=== PATIENT | male | born 1975 | race African-American/Black ===

== ENCOUNTER 2021-11-25 10:17 | Emergency (ER) | payer OTHER, SELFPAY ==
--- NOTE | 2021-11-25 10:24 | ED.URI ---
HPI - URI/Sore Throat General Chief Complaint: Asthma Stated Complaint: Asthma Flare up Time Seen by Provider: 11/25/21 10:27 History of Present Illness HPI Narrative: Patient is a 46-year-old male who presents the urgent care with complaints of an asthma flare and wheezing. 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 Patient denies any chest pain or tightness. Denies any other upper respiratory complaints. States that he has been using his albuterol inhaler with mild relief. No other acute complaints. No acute distress noted. Patient aware of the plan of care. Some parts of this dictation were generated by voice recognition software and may contain typographical and/or grammatical inaccuracies. Related Data Home Medications Medication Instructions Recorded Confirmed albuterol sulfate 90 mcg/actuation 90 mcg inhalation Q4-6H PRN 11/25/21 11/25/21 aerosol inhaler Wheezing Allergies Allergy/AdvReac Type Severity Reaction Status Date / Time No Known Allergies Allergy Verified 11/25/21 10:35 Review of Systems Review of Systems: CONSTITUTIONAL: Denies fever, chills, or sweats. EYES: Denies visual changes, redness, or discharge. ENT: Denies rhinorrhea, congestion, sore throat, or otalgia. CARDIOVASCULAR: Denies chest pain, palpitations, or edema. RESPIRATORY: Reports of wheezing GASTROINTESTINAL: Denies abdominal pain, nausea, vomiting, or diarrhea. GENITOURINARY: Denies dysuria or hematuria. SKIN: Denies rash or itching. MUSCULOSKELETAL: Denies back pain, joint pain, or myalgia. NEUROLOGIC: Denies headache, numbness, or weakness. All other systems reviewed are negative, except as documented in HPI. PMFSH Comments At the time of my signature, I reviewed and agree with the nursing past medical, surgical, social, and family history. There is no relevant family history pertinent to the patient complaint. Exam Narrative: GENERAL: This is a well-nourished, well-developed patient, in no apparent distress. HEAD: normocephalic, atraumatic. EYES: PERRL. Sclera clear/white. Vision is grossly intact. EARS: External ears normal, auditory canals clear and without drainage, TMs normal without perforation. Hearing grossly intact. NOSE: External nose normal with no obvious nasal discharge, nares without redness, no rhinorrhea. THROAT: Mucous membranes moist NECK: Neck supple CARDIOVASCULAR: Regular rate and rhythm without murmurs, gallops, or rubs. RESPIRATORY: Inspiratory and expiratory wheezes, tight throughout SKIN: warm, intact with no suspicious lesions or rash, good texture and turgor. NEURO: awake, alert, and oriented to person, place and time. There were no obvious focal neurologic abnormalities. EXTREMITIES: No clubbing, cyanosis, or edema. Course Course Level of Care: Express Care Visit Vital Signs Vital signs: Vital Signs Temperature 98.0 F 11/25/21 10:26 Pulse Rate 94 11/25/21 10:26 Respiratory Rate 20 11/25/21 10:26 Blood Pressure 141/71 H 11/25/21 10:26 Pulse Oximetry 98 11/25/21 10:26 Oxygen Delivery Room Air 11/25/21 10:26 Temperature 98.0 F 11/25/21 10:26 Pulse Rate 94 11/25/21 10:26 Respiratory Rate 20 11/25/21 10:26 Blood Pressure 141/71 H 11/25/21 10:26 Pulse Oximetry 98 11/25/21 10:26 Oxygen Delivery Room Air 11/25/21 10:26 Reviewed-patient is informed that they may have pre-hypertension or hypertension based on a blood pressure reading in the department. I recommend the patient call the primary care provider listed on their discharge instructions or a physician of their choice this week to arrange follow-up for further evaluation of possible pre-hypertension or hypertension. MDM - URI/Sore Throat MDM Narrative Medical decision making narrative: Advised the patient to complete the steroid regimen as prescribed. Start the medication tomorrow
[2021-11-25 10:26] VITALS: BP 141/71; PULSE 94; RESP 20; TEMP 36.7; O2SAT 98
[2021-11-25] MEDS: IPRATROPIUM BR 0.02% INH SOLN 0.5 MG/2.5 ML VIAL INHALATION (10:56)
[2021-11-25] MEDS: ALBUTEROL SULFATE NEB 2.5 MG/3 ML INH INHALATION (10:56)
[2021-11-25] MEDS: predniSONE 20 MG TABLET 60 MG PO (10:56)
== END 2021-11-25 11:22 | disposition home or self-care (01) ==
PROVIDERS: Emergency Provider Nurse Practitioner Family; PCP Nurse Practitioner Family
DX: J45.21 Mild intermittent asthma with (acute) exacerbation (principal)
CPT/HCPCS: 94640; 99203; G0463; J7512

== ENCOUNTER 2022-01-06 17:53 | Emergency (ER) | payer OTHER, SELFPAY ==
[2022-01-06 18:00] VITALS: BP 142/92; PULSE 92; RESP 20; TEMP 36.9; O2SAT 100
[2022-01-06 18:06] VITALS: BP 142/92; PULSE 92; RESP 20; TEMP 36.9; O2SAT 100
--- NOTE | 2022-01-06 18:09 | ED.NAVMDI ---
HPI - Nausea/Vomiting/Diarrhea General Chief complaint: Nausea/Vomiting/Diarrhea Stated complaint: Abdominal Pain/Diarrhea Time Seen by Provider: 01/06/22 18:09 Source: patient and RN notes reviewed Mode of arrival: ambulatory Limitations: no limitations History of Present Illness HPI Narrative: 46 y/o male presented for complaint of diarrhea since yesterday. He states he ate hot wings and developed abdominal bloating, nausea, and diarrhea. He has taken candelaria tommie for symptoms. Denies vomiting, hematochezia, melena, fevers or chills. Denies sick contacts. He endorses about 3 soft stools today. Has had a decreased appetite today. Related Data Home Medications Medication Instructions Recorded Confirmed albuterol sulfate 90 mcg/actuation 90 mcg inhalation Q4-6H PRN 11/25/21 01/06/22 aerosol inhaler Wheezing montelukast 10 mg tablet 10 mg PO DAILY 01/06/22 01/06/22 Allergies Allergy/AdvReac Type Severity Reaction Status Date / Time No Known Allergies Allergy Verified 01/06/22 18:05 Review of Systems Review of Systems: CONSTITUTIONAL: Denies body aches, fever, chills ENT: Denies rhinorrhea, congestion CARDIOVASCULAR: Denies chest pain, palpitations, or edema. RESPIRATORY: Denies cough or dyspnea. GASTROINTESTINAL: Endorses diarrhea. Denies abdominal pain, nausea, vomiting, hematochezia, melena GENITOURINARY: Denies dysuria, hematuria, or CVA tenderness. SKIN: Denies rash, itching, or wounds. MUSCULOSKELETAL: Denies back pain, joint pain, or myalgia. NEUROLOGIC: Denies headache, numbness, tingling, or weakness. All systems reviewed & are unremarkable except as noted in HPI and below PMFSH Comments At time of signature, I have reviewed and agree with nursing past medical, surgical, social and family history unless otherwise noted. Please see nursing chart for further information. There is no relevant family history pertinent to the presenting complaint Exam Narrative: GENERAL: Well-appearing EYES: EOMI. Conjunctivae normal. ENT: Mucous membranes pink and moist. CHEST: Clear to auscultation. HEART: Regular rate and rhythm. No murmur appreciated. ABDOMEN: abd soft, nondistended, nontender, normal active bowel sounds. EXTREMITIES: Normal range of motion. No edema. SKIN: Warm, dry, no rash. Capillary refill normal. Normal skin turgor. NEURO: No focal deficits. Alert and oriented x3. PSYCH: Normal affect. Course Course Emergency Course: Patient is aware of diagnosis, understands and agrees to treatment plan. Anticipatory guidance given. Patient agrees to follow-up as directed and is aware of reasons to seek care at the emergency department. Portions of this record may have been created with voice recognition software Level of Care: Express Care Visit Vital Signs Vital signs: Vital Signs Temperature 98.4 F 01/06/22 18:00 Pulse Rate 92 01/06/22 18:00 Respiratory Rate 20 01/06/22 18:00 Blood Pressure 142/92 H 01/06/22 18:00 Pulse Oximetry 100 01/06/22 18:00 Oxygen Delivery Room Air 01/06/22 18:00 Temperature 98.4 F 01/06/22 18:06 Pulse Rate 92 01/06/22 18:06 Respiratory Rate 20 01/06/22 18:06 Blood Pressure 142/92 H 01/06/22 18:06 Pulse Oximetry 100 01/06/22 18:06 Oxygen Delivery Room Air 01/06/22 18:06 MDM - Nausea/Vomiting/Diarrhea MDM Narrative Medical decision making narrative: Presented for complaint of diarrhea, symptoms are improving. Advised supportive measures. Reviewed signs and symptoms to go to the ER. He is stable and appropriate for outpatient treatment follow-up. Differential Diagnosis Differential diagnosis: Likely traveler's diarrhea, food poisoning and gastroenteritis Discharge Plan Discharge Clinical Impression: Diarrhea Qualifiers: Diarrhea type: unspecified type Qualified Code(s): R19.7 - Diarrhea, unspecified Patient Disposition: Home, Self-Care Condition: Stable Instructions: Acute Diarrhea (ED) Neto
== END 2022-01-06 18:21 | disposition home or self-care (01) ==
PROVIDERS: Emergency Provider Nurse Practitioner Family; PCP Nurse Practitioner Family
DX: R19.7 Diarrhea, unspecified (principal); J45.909 Unspecified asthma, uncomplicated
CPT/HCPCS: 99211; G0463

== ENCOUNTER 2022-11-11 08:41 | Emergency (ER) | payer OTHER, SELFPAY ==
[2022-11-11 08:54] VITALS: BP 125/77; PULSE 72; RESP 20; TEMP 36.4; O2SAT 100
--- NOTE | 2022-11-11 09:14 | ED.URI ---
HPI - URI/Sore Throat General Chief Complaint: Upper Respiratory Infection Stated Complaint: Asthma Source: patient and RN notes reviewed History of Present Illness HPI Narrative: 47 yo M presents to urgent care with complaints of wheezing x 9 days. Pt states he was dx with asthma as a kid and hasn't had a lot of issues as an adult. Pt is unsure if he is allergic to something at his place of work or at home. Denies any new exposures that he knows of. Denies any fevers, chills, congestion, abdominal pain, N/V/D, chest pain, or SOB. Pt does take a Singulair pill daily. Related Data Home Medications Medication Instructions Recorded Confirmed albuterol sulfate 90 mcg/actuation 90 mcg inhalation Q4-6H PRN 11/25/21 11/11/22 aerosol inhaler Wheezing montelukast 10 mg tablet 10 mg PO DAILY 01/06/22 11/11/22 Allergies Allergy/AdvReac Type Severity Reaction Status Date / Time No Known Allergies Allergy Verified 11/11/22 09:14 Review of Systems Review of Systems: CONSTITUTIONAL: Denies fever, chills, or sweats. EYES: Denies visual changes, redness, or discharge. ENT: Denies otalgia and sore throat CARDIOVASCULAR: Denies chest pain, palpitations, or edema. RESPIRATORY: Wheezing GASTROINTESTINAL: Denies abdominal pain, nausea, vomiting, or diarrhea. GENITOURINARY: Denies dysuria or hematuria. SKIN: Denies rash or itching. MUSCULOSKELETAL: Denies back pain, joint pain, or myalgia. NEUROLOGIC: Denies headache, numbness, or weakness. Pertinent positives per HPI. PMFSH Comments At the time of my signature, I reviewed and agree with the nursing past medical, surgical, social, and family history. There is no relevant family history pertinent to the patient complaint. Exam Narrative: GENERAL: This is a well-nourished, well-developed patient, in no apparent distress. HEAD: normocephalic, atraumatic. EYES: Sclera clear/white. Vision is grossly intact. EARS: External ears normal, auditory canals clear and without drainage. Hearing grossly intact. NOSE: External nose normal with no obvious nasal discharge, nares without redness, no rhinorrhea. THROAT: Mucous membranes moist, posterior pharynx clear. NECK: Neck supple, non-tender without lymphadenopathy, masses or thyromegaly. CARDIOVASCULAR: Regular rate and rhythm without murmurs, gallops, or rubs. RESPIRATORY: Mild wheezing throughout GASTROINTESTINAL: Abdomen soft, non-tender, nondistended. Bowel sounds are active. No hepato-splenomegaly, or palpable masses. No guarding. SKIN: warm, intact with no suspicious lesions or rash, good texture and turgor. NEURO: awake, alert, and oriented to person, place and time. There were no obvious focal neurologic abnormalities. Course Course Level of Care: Express Care Visit Vital Signs Vital signs: Vital Signs Temperature 97.6 F 11/11/22 08:54 Pulse Rate 72 11/11/22 08:54 Respiratory Rate 20 11/11/22 08:54 Blood Pressure 125/77 11/11/22 08:54 Pulse Oximetry 100 11/11/22 08:54 Oxygen Delivery Room Air 11/11/22 08:54 Temperature 97.6 F 11/11/22 08:54 Pulse Rate 72 11/11/22 08:54 Respiratory Rate 20 11/11/22 08:54 Blood Pressure 125/77 11/11/22 08:54 Pulse Oximetry 100 11/11/22 08:54 Oxygen Delivery Room Air 11/11/22 08:54 reviewed MDM - URI/Sore Throat MDM Narrative Medical decision making narrative: Do not smoke. Avoid smoke of any kind. May use a humidifier in the bedroom. Get plenty of fluids and rest. Take steroids as directed. Use your inhaler every 4-6 hours if needed. Follow up with your MD in 2-5 days. Go to the ER with any new or worsening symptoms. Differential Diagnosis Differential diagnosis: Likely upper respiratory infection, bronchitis and other (asthma exacerabation) Critical Care Time Critical Care Time Critical Care Time: No Discharge Plan Discharge Clinical Impression: Asthma Qualifiers: Asthma severity: unspecified severity Asthma
== END 2022-11-11 09:20 | disposition home or self-care (01) ==
PROVIDERS: Emergency Provider Nurse Practitioner Family; PCP Nurse Practitioner Family
DX: J45.901 Unspecified asthma with (acute) exacerbation (principal)
CPT/HCPCS: 99213; G0463

== ENCOUNTER 2023-04-18 12:21 | Emergency (ER) | payer OTHER, SELFPAY ==
--- NOTE | ~2023-04-18 | XR_ITS ---
EXAMINATION: XR ankle LT min 3V DATE: 04/18/2023 12:52 INDICATION: Left ankle pain TECHNIQUE: Anteroposterior, lateral, mortise, and additional oblique view of the ankle were obtained. COMPARISON: None. FINDINGS: No fracture, dislocation, or subluxation. The bones, soft tissues, and joint spaces are nor mal. IMPRESSION: 1. No acute osseous abnormality. Reviewed, dictated and finalized at location A. ES ASSISTANT
--- NOTE | ~2023-04-18 | XR_ITS ---
EXAMINATION: XR foot LT min 3V DATE: 04/18/2023 12:52 INDICATION: Left foot pain TECHNIQUE: Dorsoplantar, lateral, and 2 oblique views of the left foot were obtained. COMPARISON: None. FINDINGS: Bone alignment is normal. There is no fracture. The joint spaces are normal. The soft tissu es are unremarkable. IMPRESSION: 1. No acute osseous abnormality. Reviewed, dictated and finalized at location A. UNTING PRACTICE MANAGER
[2023-04-18 12:26] VITALS: BP 123/79; PULSE 83; RESP 20; TEMP 36.6; O2SAT 98
[2023-04-18 12:35] VITALS: BP 123/79; PULSE 83; RESP 20; TEMP 36.6; O2SAT 98
--- NOTE | 2023-04-18 12:49 | ED.LOWEXIN ---
HPI - Extremity Injury (Lower) General Chief Complaint: Extremity Injury, Lower Stated Complaint: feels like he twisted left foot/ankle Time Seen by Provider: 04/18/23 12:50 Source: patient, RN notes reviewed and old records reviewed Mode of arrival: ambulatory Limitations: no limitations History of Present Illness HPI Narrative: 47 year old male presents to [facility] with complaints of left foot pain laterally radiating up to his ankle for the past 4-5 days. 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 Patient reports that he has been taking Ibuprofen for his discomfort and has applied ice and has used mike wrap to his foot without improvement. Patient does have some swelling to his foot, no obvious deformity noted. MD complaint: foot injury (radiates to left ankle) Onset (ago): day(s) (4-5 days) Injury: Left: ankle and foot Severity: moderate Severity scale (1-10): 5 Exacerbating factors: weight bearing and movement Associated symptoms: swelling Treatments prior to arrival: cold therapy and other (Ibuprofen and mike wrap) Related Data Allergies Allergy/AdvReac Type Severity Reaction Status Date / Time No Known Allergies Allergy Verified 11/11/22 09:14 Review of Systems Review of Systems: CONSTITUTIONAL: Denies fever, chills, or sweats. CARDIOVASCULAR: Denies chest pain, palpitations, or edema. RESPIRATORY: Denies cough or dyspnea. SKIN: Denies rash or itching. Denies laceration or abrasions MUSCULOSKELETAL: Reports pain to his lateral left foot radiating to his left lateral ankle NEUROLOGIC: Denies numbness, or weakness. All systems reviewed & are unremarkable except as noted in HPI and below PMFSH Past Medical History Medical History (Updated 04/19/23 @ 08:14 by Chantale New NP) Asthma Social History Social History (Updated 04/19/23 @ 08:09 by Chantale New NP) Smoking status: Never smoker Alcohol intake: current Alcohol use details: social Substance use type: does not use Living arrangements: with family Gender identity (if verbalized by the patient): Male Comments At time of signature, agree with nursing past medical, surgical, social and family history. There is no relevant family history pertinent to the presenting complaint Exam Narrative: GENERAL: Well-appearing, well-nourished, and in no acute distress. HEAD: Normocephalic, atraumatic. EYES: PERRLA, conjunctivae clear NECK: Supple. CHEST: Speaks in full sentences. No respiratory distress.SAO2 98% on room air HEART: Regular rate and rhythm. Normal and equal peripheral pulses. EXTREMITIES: Left foot and ankle has normal strength and sensation, normal range of motion with some discomfort. some left foot edema no ecchymosis. 5/5 strength with normal flexion and extension. Normal sensation with sensitivity to light touch and pain. lateral foot and lateral ankle point tenderness.? ?No open wounds, no skin tenting, no devitalized tissue or atrophy, no trophic changes, no obvious deformity, alignment normal, nearby joints and structures intact. Distal pulses palpable and equal bilaterally, skin warm, dry, pink. Capillary refill less than 3 seconds. Course Course Emergency Course: Patient is aware of diagnosis, understands and agrees to treatment plan. Anticipatory guidance given. Patient agrees to follow-up as directed and is aware of reasons to seek care at the emergency department. Portions of this record may have been created with voice recognition software Level of Care: Express Care Visit Vital Signs Vital signs: Vital Signs Temperature 36.6 C 04/18/23 12:26 Pulse Rate 83 04/18/23 12:26 Respiratory Rate 20 04/18/23 12:26 Blood Pressure 123/79 04/18/23 12:26 Pulse Oximetry 98 04/18/23 12:26 Oxygen Delivery Room Air 04/18/23 12:26 Temperature 36.6 C 04/18/23 12:35 Pulse Rate 83 04/18/23 12:35
== END 2023-04-18 13:20 | disposition home or self-care (01) ==
PROVIDERS: Emergency Provider Registered Nurse
DX: S93.402A Sprain of unspecified ligament of left ankle, initial encounter (principal); S96.912A Strain of unspecified muscle and tendon at ankle and foot level, left foot, initial encounter; S93.602A Unspecified sprain of left foot, initial encounter; X58.XXXA Exposure to other specified factors, initial encounter; Y99.0 Civilian activity done for income or pay; J45.909 Unspecified asthma, uncomplicated
CPT/HCPCS: 73610; 73630; 99213; G0463

== ENCOUNTER 2023-07-11 13:05 | Emergency (ER) | payer OTHER, SELFPAY ==
[2023-07-11 13:10] VITALS: BP 133/87; PULSE 86; RESP 20; TEMP 36.4; O2SAT 98
--- NOTE | 2023-07-11 14:40 | ED.GENADULT ---
HPI - General Adult General Chief complaint: Upper Respiratory Infection Stated complaint: asthma issue Source: patient Mode of arrival: ambulatory Limitations: no limitations History of Present Illness HPI narrative: Patient presents requesting a note to document that he is asthmatic. He indicates he administers albuterol per inhaler as needed for shortness of breath or wheezing. Occasionally he needs to use nebulizer treatments. He indicates he received notice that his power was going to be shut off however he was told that if he provided documentation that he was asthmatic, the company would work with him to keep his power on. He states that his asthma is currently fairly well controlled. He denies any other complaints. He does not smoke. Related Data Home Medications Medication Instructions Recorded Confirmed albuterol sulfate 2.5 mg/3 mL See Rx Instructions .Route 07/11/23 07/11/23 (0.083 %) solution for nebulization .COMPLEX PRN sob albuterol sulfate 90 mcg/actuation See Rx Instructions .Route 07/11/23 07/11/23 aerosol inhaler .COMPLEX PRN sob fluticasone 100 mcg-salmeterol 50 See Rx Instructions .Route .COMPLEX 07/11/23 07/11/23 mcg/dose blistr powdr for inhalation montelukast 10 mg tablet 10 mg PO DAILY 07/11/23 07/11/23 Allergies Allergy/AdvReac Type Severity Reaction Status Date / Time No Known Allergies Allergy Verified 07/11/23 13:39 Review of Systems Review of Systems: CONSTITUTIONAL: Denies fever, chills, or sweats. EYES: Denies visual changes, redness, or discharge. ENT: Denies rhinorrhea, congestion, sore throat, or otalgia. CARDIOVASCULAR: Denies chest pain, palpitations, or edema. RESPIRATORY: Denies cough or dyspnea. GASTROINTESTINAL: Denies abdominal pain, nausea, vomiting, or diarrhea. GENITOURINARY: Denies dysuria or hematuria. SKIN: Denies rash or itching. MUSCULOSKELETAL: Denies back pain, joint pain, or myalgia. NEUROLOGIC: Denies headache, numbness, dizziness, or weakness. PSYCHIATRIC: Denies anxiety or depression. [facility] Past Medical History Medical History Asthma Surgical History Surgical History No pertinent past surgical history Family History Family History Mother Family history non-contributory Social History Social History (Updated 07/11/23 @ 14:44 by LILY Munoz, ) Smoking status: Never smoker Alcohol intake: current Alcohol use details: social Substance use type: does not use Living arrangements: with family Gender identity (if verbalized by the patient): Male Spiritual care concerns: No Course Course Emergency Course: This is a 47-year-old male who presented requesting a note documenting that he is asthmatic. I think this is reasonable request is there is already documentation in his chart indicating that. Letter was provided. He should follow up with his PCP. Continue to use albuterol inhaler and neb treatments as previously directed. Pt in agreement with plan of care. Level of Care: Express Care Visit Vital Signs Vital signs: Vital Signs Temperature 36.4 C 07/11/23 13:10 Pulse Rate 86 07/11/23 13:10 Respiratory Rate 20 07/11/23 13:10 Blood Pressure 133/87 07/11/23 13:10 Pulse Oximetry 98 07/11/23 13:10 Oxygen Delivery Room Air 07/11/23 13:10 Temperature 36.4 C 07/11/23 13:10 Pulse Rate 86 07/11/23 13:10 Respiratory Rate 20 07/11/23 13:10 Blood Pressure 133/87 07/11/23 13:10 Pulse Oximetry 98 07/11/23 13:10 Oxygen Delivery Room Air 07/11/23 13:10 Medical Decision Making Vital Signs Vital Signs: Vital Signs Temperature 36.4 C 07/11/23 13:10 Pulse Rate 86 07/11/23 13:10 Respiratory Rate 20 07/11/23 13:10 Blood Pressure 133/87 07/11/23 13:10 Pulse Oximetry 98
== END 2023-07-11 14:40 | disposition home or self-care (01) ==
PROVIDERS: Emergency Provider Nurse Practitioner; PCP Nurse Practitioner Family
DX: J45.909 Unspecified asthma, uncomplicated (principal)
CPT/HCPCS: 99211; G0463

== ENCOUNTER 2023-08-30 16:00 | Emergency (ER) | payer OTHER, SELFPAY ==
[2023-08-30 16:11] VITALS: BP 139/94; PULSE 80; RESP 20; TEMP 36.4; O2SAT 100
--- NOTE | 2023-08-30 16:31 | ED.URI ---
HPI - URI/Sore Throat General Chief Complaint: Upper Respiratory Infection Stated Complaint: Skin Problem/Shortness of Breath Source: patient, RN notes reviewed and old records reviewed Mode of arrival: ambulatory Limitations: no limitations History of Present Illness HPI Narrative: 48 year old male who presents to [facility] care with complaints of pustular lesion to his left forehead for the past 2 days which he has pinched around it with no drainage noted for the past 2 days. Patient reports that he had had pressure to his sinus and has had a frontal headache for 2 day also. Patient reports that anytime he gets sinus drainage, sinus problem it acts up his asthma and he has been experiencing more wheezing but denies any acute dyspnea. or fevers. MD elicited complaint: cough, rhinorrhea, nasal congestion and other (pustular lesion on forehead) Pertinent past history: sinusitis and asthma Related Data Home Medications Medication Instructions Recorded Confirmed albuterol sulfate 2.5 mg/3 mL See Rx Instructions .Route 07/11/23 08/30/23 (0.083 %) solution for nebulization .COMPLEX PRN sob albuterol sulfate 90 mcg/actuation See Rx Instructions .Route 07/11/23 08/30/23 aerosol inhaler .COMPLEX PRN sob montelukast 10 mg tablet 10 mg PO DAILY 07/11/23 08/30/23 Allergies Allergy/AdvReac Type Severity Reaction Status Date / Time No Known Allergies Allergy Verified 08/30/23 16:23 Review of Systems Review of Systems: CONSTITUTIONAL: Denies malaise, chills, sweats, or fever. EYES: Denies visual changes, redness, or discharge. ENT: Reports rhinorrhea, congestion,positive for sinus pain,no otalgia and no sore throat. CARDIOVASCULAR: Denies chest pain, palpitations, or edema. RESPIRATORY: Reports cough.? Positive for cough and some wheezing GASTROINTESTINAL: Denies abdominal pain, nausea, vomiting, diarrhea SKIN: Denies rash or itching.small pustule to forehead MUSCULOSKELETAL: Denies myalgia. NEUROLOGIC: Reports frontal headache. All systems reviewed & are unremarkable except as noted in HPI and below PMFSH Past Medical History Medical History Asthma Back pain Bronchitis Surgical History Surgical History No pertinent past surgical history Family History Family History Mother Family history non-contributory Social History Social History Smoking status: Never smoker Alcohol intake: current Alcohol use details: social Substance use type: does not use Living arrangements: with family Gender identity (if verbalized by the patient): Male Spiritual care concerns: No Comments At time of signature, agree with nursing past medical, surgical, social and family history. There is no relevant family history pertinent to the presenting complaint Exam Narrative: GENERAL: Well-appearing, well-nourished, and in no acute distress. HEAD: Normocephalic EYES: PERRLA, conjunctivae clear ENT: Nares clear, turbinates edematous and erythematous, clear discharge. Mucous membranes moist. TM pearly horn with dull light reflex bilaterally; no tragal tenderness. Oropharynx erythematous without lesions. Tonsils not enlarged and without exudate, no drooling, no hoarseness, no trismus, uvula midline.post nasal drainage present NECK: Supple. No lymphadenopathy CHEST:Scattered wheezing on auscultation, breath sounds equal.positive for wheezing, rhonchi, rales, or stridor. No respiratory distress, speaks in full sentences. HEART: Regular rate and rhythm. No murmur heard. SKIN: Warm, dry, no rash small pustular lesion to left forehead. NEURO: Alert and oriented x3. PSYCH: Normal mood and affect Course Course Emergency Course: Patient is aware of diagnosis, understands and agre
== END 2023-08-30 16:50 | disposition home or self-care (01) ==
PROVIDERS: Emergency Provider Registered Nurse; PCP Nurse Practitioner Family
DX: J34.89 Other specified disorders of nose and nasal sinuses (principal); L08.9 Local infection of the skin and subcutaneous tissue, unspecified; J45.41 Moderate persistent asthma with (acute) exacerbation
CPT/HCPCS: 99213; G0463

== ENCOUNTER 2023-12-27 10:38 | Emergency (ER) | payer OTHER, SELFPAY ==
[2023-12-27 10:42] VITALS: BP 147/79; PULSE 100; RESP 20; TEMP 36.7; O2SAT 98
--- NOTE | 2023-12-27 10:49 | ED.ASTHMA ---
HPI - Asthma General Stated Complaint: Wheezing History of Present Illness HPI Narrative: Patient presents with an asthma flare. Patient denies any shortness of breath and no chest pain no fever no body aches. Patient states whenever there is a drastic weather change he has problems with his asthma. Patient states he does use an Advair inhaler in the past but has not had any for quite sometimes he thinks he may have run out of refills or he misplaced it. Patient has been using his rescue inhaler at home more than usual and has an albuterol nebulizer treatment at home that he uses as prescribed. Related Data Home Medications Medication Instructions Recorded Confirmed albuterol sulfate 2.5 mg/3 mL See Rx Instructions .Route 07/11/23 08/30/23 (0.083 %) solution for nebulization .COMPLEX PRN sob albuterol sulfate 90 mcg/actuation See Rx Instructions .Route 07/11/23 08/30/23 aerosol inhaler .COMPLEX PRN sob fluticasone 250 mcg-salmeterol 50 inhalation 12/27/23 mcg/dose blistr powdr for inhalation (Advair Diskus) Allergies Allergy/AdvReac Type Severity Reaction Status Date / Time No Known Allergies Allergy Verified 08/30/23 16:23 Review of Systems Review of Systems: CONSTITUTIONAL: Denies chills, or sweats. Reports fever and generalized body aches EYES: Denies visual changes, redness, or discharge. ENT: Denies otalgia. Reports nasal congestion runny nose and sore throat CARDIOVASCULAR: Denies chest pain, palpitations, or edema. RESPIRATORY: Denies dyspnea. Reports occasional cough GASTROINTESTINAL: Denies abdominal pain, nausea, vomiting, or diarrhea. GENITOURINARY: Denies dysuria or hematuria. SKIN: Denies rash or itching. MUSCULOSKELETAL: Denies back pain, joint pain, or myalgia. Reports generalized body aches NEUROLOGIC: Denies headache, numbness, or weakness. PSYCHIATRIC: Denies anxiety or depression. [facility] Past Medical History Medical History Asthma Back pain Bronchitis Surgical History Surgical History No pertinent past surgical history Family History Family History Mother Family history non-contributory Social History Social History Smoking status: Never smoker Alcohol intake: current Alcohol use details: social Substance use type: does not use Living arrangements: with family Gender identity (if verbalized by the patient): Male Spiritual care concerns: No Comments At time of signature, agree with nursing past medical, surgical, social and family history. There is no relevant family history pertinent to the presenting complaint Exam Narrative: The patient is a well-developed, well-nourished in no acute distress. SKIN: Skin is warm and dry without erythema, swelling or exudate. There is good turgor. No tenting. HEAD: Atraumatic. Normocephalic. No temporal or scalp tenderness. EYES: Moist and bright. Sclera and conjunctivae normal. No discharge. PERRLA. Extraocular motions intact. Gross visual acuity intact. EARS: Pinna is normal shape and contour. Clear external auditory canals. TM pearly hernandez with good cone of light, no erythema or suppuration. Bilateral cerumen noted no gross hearing deficit. NOSE: pink, moist mucosa with good air movement. Clear rhinorrhea without nasal flaring. Septum midline. Mouth: moist mucous membranes. THROAT; mild erythema noted to posterior oropharynx with moderate postnasal drainage. Without exudate or ulceration.. Uvula midline. Normal movement of soft palate. NECK: Supple and nontender with full range of motion without discomfort. No meningeal signs. LUNGS: Equal and bilateral breath sounds without rales or rhonchi. Scattered expiratory wheezes CHEST: The chest wall is without retractions or use of accessory muscl
[2023-12-27 11:01] VITALS: BP 147/79; PULSE 100; RESP 20; TEMP 36.7; O2SAT 98
== END 2023-12-27 11:00 | disposition home or self-care (01) ==
PROVIDERS: Emergency Provider Nurse Practitioner Family; PCP Nurse Practitioner Family
DX: J45.901 Unspecified asthma with (acute) exacerbation (principal)
CPT/HCPCS: 99213; G0463

== ENCOUNTER 2024-06-18 18:10 | Emergency (ER) | payer OTHER, SELFPAY ==
--- OUTSIDE RECORDS SUMMARY | 2024-06-18 18:13 | XMS_ITS | Referral Summary ---
Author Organization [facility] Address [address] [place] [address] Care Team Providers Care Capacity Planner Name Role Phone Jay Dolores Nanci AHUJA Primary Care Provider Encounters Date Type Department Care Team Description 06/14/2024 Documentation [facility] Home Care Services [address] [place] [address] Louis Syed, TEACHER OF THE HEARING IMPAIRED 03/22/2024 Telephone [facility] Pulmonary Jess [address] [facility] [address] [place] [address] Johnny Dyson CMA from Last 3 Months Allergies Active Allergy Reactions Criticality Noted Date Comments Peanut Butter Flavor Anaphylaxis High 03/22/2018 Medications traMADol (ULTRAM) 50 mg tablet take 1 tablet by oral route every 6 hours as needed 12 0 6 Active Additional Information Patient not taking.Reported on 12/21/2021 omeprazole (PriLOSEC) 20 mg capsule Take 1 capsule (20 mg total) by mouth daily. 30 capsule 9 Active Additional Information Patient not taking.Reported on 10/20/2018 albuterol HFA (PROVENTIL HFA,VENTOLIN HFA,PROAIR HFA) 90 mcg/actuation inhaler Inhale 2 puffs every 4 (four) hours as needed for wheezing 1 each 3 Active amoxicillin-cla vulanate (AUGMENTIN) 875-125 mg per tablet Take 1 tablet by mouth every 12 (twelve) hours 14 tablet 3 Active albuterol HFA (PROVENTIL HFA,VENTOLIN HFA,PROAIR HFA) 90 mcg/actuation inhaler Inhale 2 puffs every 4 (four) hours as needed for wheezing 1 each 4 Active albuterol 2.5 mg /3 mL (0.083 %) nebulizer solution Take 3 mL (2.5 mg total) by nebulization every 6 (six) hours as needed for wheezing 75 mL 4 Active montelukast (SINGULAIR) 10 mg tabletIndicatio ns:Maintenance Therapy for Asthma Take 1 tablet (10 mg total) by mouth nightly 30 tablet 4 Active budesonide-form oteroL (SYMBICORT) 80-4.5 mcg/actuation inhalerIndicati ons:Maintenance Therapy for Asthma Inhale 2 puffs 2 (two) times a day Rinse mouth with water after use. Do not swallow. 1 each 4 Active naproxen (NAPROSYN) 500 mg tablet Take 1 tablet (500 mg total) by mouth 2 (two) times a day with meals 30 tablet 4 Active methocarbamoL (ROBAXIN) 500 mg tablet Take 1 tablet (500 mg total) by mouth 2 (two) times a day 20 tablet 4 Active albuterol HFA (PROVENTIL HFA,VENTOLIN HFA,PROAIR HFA) 90 mcg/actuation inhaler Inhale 2 puffs every 4 (four) hours as needed for wheezing 1 each 1 4 11/29/19 25 Active Active Problems Problem Noted Date Diagnosed Date KEHINDE (obstructive sleep apnea) 01/06/2024 BMI 30.0-30.9,adult 01/06/2024 Psychophysiological insomnia 01/06/2024 Delayed sleep phase syndrome 01/06/2024 Nonsmoker 01/06/2024 Moderate persistent asthma without complication 01/06/2024 Asthma with acute exacerbation 02/08/2021 Mild persistent asthma without complication 09/04 Toothache 05/29/2015 Overview (07/10/2016): Pain, dental Neck pain 01/28/2014 Overview (07/10/2016): Neck pain Social History Tobacco Use Types Packs/Day Years Used Date Smoking Tobacco: Never Passive Smoke Exposure: Never Smokeless Tobacco: Never Tobacco Cessation:Counseling Given: Not Answered Alcohol Use Standard Drinks/Week Comments No 0 (1 standard drink = 0.6 oz pur e alcohol) AUDIT-C Answer Date Recorded Q1: How often do you have a drink containing alc ohol? 2-4 times a month 01/06/2024 Q2: How many drinks containi ng alcohol do you have on a typical day when you are drinking? 1 or 2 01/06/2024 Q3: How often do you have si x or more drinks on one occasion? Never 01/06/2024 Personal Safety Answer Date Recorded Have you ever been in or are you currently in a harmful physical or emotional relationship or is someone making you feel afraid or unsafe? 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 Gender Identity Not on file Sexual Orientation Not on file Last Filed Vital Signs Vital Sign Reading Time Taken Comments Blood Pressure 108/68 01/06/2024 1:35 PM CDT Pulse 90 01/06/2024 1:35 PM CDT Temperature 36.4 C (97.6 F) 01/06/2024 1:35 PM CDT Respiratory Rate 18 01/06/2024 1:35 PM CDT Oxygen Saturation 98% 01/06/2024 1:35 PM CDT Inhaled Oxygen Concentration - - Weight 84.4 kg (186 lb) 01/06/2024 1:35 PM CDT Height 167.6 cm (5' 6 ) 01/06/2024 1:35 PM CDT Body Mass Index 30.02 01/06/2024 1:35 PM CDT Plan of Treatment Not on file Insurance [facility] Care Teams Capacity Planner Relationship Specialty Start Date End Date Dolores Thompson NP [phone] [address] PCP - General Family Medicine 01/29/22
--- OUTSIDE RECORDS SUMMARY | 2024-06-18 18:13 | XMS_ITS | Clinical Summary ---
Author Organization [facility] Address [address] [place] [address] Care Team Providers Care Habitat Conservation Planner Name Role Phone JayDolores NP Primary Care Provider [phone] Allergies Active Allergy Reactions Criticality Noted Date [...] Neck pain 01/28/2014 Overview (07/10/2016): Neck pain Encounters Date Type Department Care Team Description 06/14/[address] [facility] Home Care Services [address] [place] [address] Louis Syed, COMPUTED TOMOGRAPHY TECHNICIAN 03/22/[address] 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 Gender Identity Not on file Sexual Orientation Not on file Obstetrics History Last Filed Vital Signs Vital Sign Reading [...] 01/06/2024 1:35 PM CDT Plan of Treatment Health Maintenance Due Date Last Done Comments Colon Cancer Screening-Colonoscopy 1976 Hepatitis C Screening 1976 Prostate Cancer Screening-PSA 1976 Hepatitis B Screening 1994 Regular Well Visit/Exam 18-64 1994 DTaP/Tdap/Td Vaccine (1 - Tdap) 05/04/2013 4 Pneumococcal vaccine <65 (2 of 2 - PCV) 11/24/2015 0 11/23/2014 Depression Screening 08/13/2018 08/13/2017, 08/09/19 18 Influenza Vaccine (#1) 2023 Insurance IDPA [facility] CHO[facility] PLUS [facility] Address: [address] [address] [place] [address] [facility] CHOICE PLUS [facility] H[facility]/PPO Address: [address] [address] [place] [address] [employer] [facility] Care Teams Habitat Conservation Planner Relationship Specialty Start Date End Date Dolores Thompson NP [phone] [address] PCP - General Family Medicine 01/29/22
--- OUTSIDE RECORDS SUMMARY | 2024-06-18 18:13 | XMS_ITS | Data Portability ---
Author Organization [facility] Address [address] [place] [address] Care Team Providers Care [employer]cre[employer] Name Role Phone DOLORES COLON Primary Care Provider Assessment Encounter Date Assessment Date Assessment LastModified by Organization Details LastModified Time 04/22/2023 04/22/2023 Mr. Barbosa presented in office today for f/u appointment. Patient c/o left foot strain x 1 week. Not available 04/23/2023 14:10:19 07/13/2023 07/13/2023 Mr. Barbosa presented in office today for follow up appointment. Patient requests that an Ameren form be filled out in order to keep his electricity on. Not available 07/13/2023 12:55:11 11/11/2023 11/11/2023 Mr. Barbosa presented in office today for follow up appointment. Not available 11/16/2023 09:16:38 12/23/2023 12/23/2023 Mr. Barbosa presented in office today for follow up appointment Not available 01/04/2024 22:56:03 05/18/2024 05/18/2024 Mr. Barbosa presents for a follow-up appointment, reporting a cough and congestion for the past four days. Not available 05/18/2024 14:45:05 Plan of Treatment Reminders Order Date Submit Date Provider Last Modified By Organization Details Last Modified Time Details Appointments ANY 15 2024 11:00A M DOLORES COLON NP Not available Not available Not available Lab None recorded . Referral pulmonol ogist referral 2023 024 cody Fotnenot MD, [address] [facility] [address], [place], [address], 03/10/2024 16:10:47 pulmonol ogist referral 2023 024 cody Breaux MD, [address] [facility], [address] Floor, [place], [address], 10/13/2023 13:00:43 Procedures None recorded . Surgeries None recorded . Imaging None recorded . Medication Orders Advair Diskus 250 mcg-50 mcg/dose powder for inhalati on 2024 025 [facility] [id number], [address], [place], [id number], 05/18/2024 14:36:29 albutero l sulfate HFA 90 mcg/actu ation aerosol inhaler 2024 025 [facility] [facility][id number], [address], [place], [id number], 05/18/2024 14:36:28 monteluk ast 10 mg tablet 2024 025 [facility] [facility]85489, [address], [place], [id number], 05/18/2024 14:36:27 albutero l sulfate 2.5 mg/3 mL (0.083 %) solution for nebuliza tion 2023 024 [place] [facility]13043, [address], [place], [id number], 11/16/2023 09:20:54 monteluk ast 10 mg tablet 2023 025 [place] [facility][id number], [address], [place], [id number], 05/18/2024 14:13:23 albutero l sulfate HFA 90 mcg/actu ation aerosol inhaler 2023 024 [facility], [address] [place], [id number], 11/16/2023 09:20:54 Advair Diskus 250 mcg-50 mcg/dose powder for inhalati on 2023 024 [facility] Not available 07/13/2023 12:57:33 albutero l sulfate HFA 90 mcg/actu ation aerosol inhaler 2023 024 [facility] Not available 04/22/2023 10:43:35 albutero l sulfate 2.5 mg/3 mL (0.083 %) solution for nebuliza tion 2023 024 [facility] Not available 04/22/2023 10:43:35 Patient TargetsNo targets recorded. Patient Instructions Encounter Date Encounter Id Patient Instructions Last Modified By Organization Details Last Modified Time 04/22/2023 [id number] strain or sprain : care instructions Not available 04/22/2023 10:24:08 - Always present to ER or Urgent Care with any progression of/alarming symptoms, significant changes in symptoms or any concerning or urgent matters Not available 04/22/2023 10:21:03 07/13/2023 [id number] A healthy lifestyle: care instructions Not available 07/13/2023 12:57:31 - Always present to ER or Urgent Care with any progression of/alarming symptoms, significant changes in symptoms or any concerning or urgent matters Not available 07/13/2023 12:53:46 11/11/2023 [id number] A healthy lifestyle: care instructions Not available 11/16/2023 09:16:30 - Always present to ER or Urgent Care with any progression of/alarming symptoms, significant changes in symptoms or any concerning or urgent matters Not available 11/16/2023 09:16:06 12/23/2023 [id number] A healthy lifestyle: care instructions Not available 01/04/2024 22:57:30 - Always present to ER or Urgent Care with any progression of/alarming symptoms, significant changes in symptoms or any concerning or urgent matters Not available 12/23/2023 14:36:36 05/18/2024 [id number] - Always present to ER or Urgent Care with any progression of/alarming symptoms, significant changes in symptoms or any concerning or urgent matters Not available 05/18/2024 14:29:13 Reason for Referral Phlebotomy Support Tech Referral for S leep pattern disturbance Referring Physician: Dolores Colon [facility], Encounter Date: 04/22/2023 Phlebotomy Support Tech Referral for S leep pattern disturbance Referring Physician: Dolores Colon [facility], Encounter Date: 11/11/2023 Problems Name Problem SNOMED Code Status Onset Date Resolution Date Notes Provider Name and Address Organization Details Recorded Time Moderate persisten t asthma 555022467 Active 2017 DOLORES COLON NP Attn: Nabil villegas,[address] [place], [address] [facility] [place] [facility] 4 16:50:22 Environme ntal allergy 670059268 Active 2017 Tamar Parsons [place], [place] [facility] 8 07:25:25 Asthmatic bronchiti s 686334457 Active 2017 Tamar Jaqueline [place] [facility] 8 07:25:25 Exudative pharyngit is 807164489 Active 2017 Tamar [place]queline [place] [facility] [place] 07:25:25 Insect bite - wound 833247264 Active 2017 Tamar [place]queline [place] [facility] [place] 15:31:00 Impotence Active 2017 Tamar [place] [facility] [place] 10:24:21 Body mass index 25-29 - overweigh t 618261027 Active 2017 Tamar [place] [facility] [place] 10:25:31 Pain in wrist 86484179 Active 2017 Tamar bailey, [place] [facility] 12:45:36 Candidias is of skin 14980725 Active 2017 Tamar [place] [facility] [place] 12:45:40 Streptoco ccal sore throat 09060841 Completed 201806/12/2020 DOLORES COLON NP Attn: Nabil bakari,[address] [facility], [place], [address], [place] [facility] 1 21:30:02 Acute stress disorder 70788122 Active 2019 Tamar bailey, [place] [facility] 0 14:56:16 Strain of back muscle 688720903 Active 2020 DOLORES COLON NP Attn: Nabil villegas,[address] [place], [address], [place] [facility] 1 13:57:10 Elevated blood-pre ssure reading without diagnosis of hypertens ion 190548260 Active 2021 DOLORES COLON NP Attn: Nabil bakari,[address] [place], [address], [place] [facility] 4 16:50:22 Spasm of back muscles 897466175 Active 2021 DOLORES COLON NP Attn: Nabil bakari,[address] [place], [address], [place] [facility] 2 12:31:40 Onychomyc osis of toenails 317712376 Active 2021 DOLORES COLON NP Attn: Nabil bakari,[address] [place] [address], [address], [place] [facility] 2 12:31:42 Tinea pedis 1229906 Active Tamar Pars[place] [facility] [place] 07:25:25 Onychomyc osis 219850653 Active Tamar bailey, [place] [facility] 8 07:25:25 Sleep pattern disturban ce 46101477 Active 2022 DOLORES COLON NP Attn: Nabil villegas,[address] [facility], [place], [address], [place] [facility] 4 16:50:22 Obesity 456202254 Active 2022 DOLORES COLON NP Attn: Estebantosha villegas,[address] [facility], [place], [address], [place] [facility] 4 16:50:22 Overweigh t 037456912 Active 2022 DOLORES COLON NP Attn: Estebantosha villegas,[address] [facility], [place], [address], [place] [facility] 3 11:11:42 Strain of tendon of foot and ankle 248597712 Active 2023 DOLORES COLON NP Attn: Nabil bakari,[address] [facility], [place], [address], [place] [facility] 4 10:23:27 Positive screening for depressio n on PHQ-9 (Patient Health Questionn aire 9) 504852255049 100 Active 2024 DOLORES COLON NP Attn: Estebantosha villegas,[address] [place], [address], [place] [facility] 5 14:53:25 Allergic rhinitis 83536885 Active Tamar [place] [facility] [place] 07:25:25 Generaliz ed headache 920248044 Active Tamar [place] [facility] 8 07:25:25 Asthma 797363044 Completed 08/29/2020 DOLORES COLON NP Attn: Nabil villegas,[address] [place], [address], [place] [facility] 1 09:00:31 Asthmatic bronchiti s 713519833 Completed 06/16/2017 Tamark[place]ng Pars[place] [facility] 8 07:22:15 Problem Notes None recorded. Medical Equipment None Reported. Allergies No known drug allergies Medications Name Sig Start Date Stop Date Status Note LastModified by Organization Details LastModified Time montelukast sodium 10 mg tabs 12/20 completed Not Available Not Available Not Available ipratropium / ad albuter 12/20 completed Not Available Not Available Not Available prednisone 20 mg tabs 09/05 completed Not Available Not Available Not Available nystatin 928672 unit/gm crea 12/20 completed Not Available Not Available Not Available cyclobenzap rine 10 mg tablet Take 1 tablet 3 times a day by oral route as needed for 10 days. 06/03 completed Not Available Not Available Not Available terbinafine HCl 1 % topical cream APPLY TO THE AFFECTED AND SURROUNDI NG AREAS OF SKIN BY TOPICAL ROUTE ONCE DAILY 09/29 completed Not Available Not Available Not Available Qvar 80 mcg/actuati on Metered Aerosol oral inhaler Inhale 2 puffs every 12 hours by inhalatio n route as directed. 06/26 completed Not Available Not Available Not Available prednisone 10 mg tablet 06/03 completed Not Available Not Available Not Available ipratropium 0.5 mg-albutero l 3 mg (2.5 mg base)/3 mL nebulizatio n soln INHAL 3 ML BY NEBULIZER ROUTE 4 TIMES A DAY FOR 30 DAYS 06/03 completed Not Available Not Available Not Available tizanidine 2 mg tablet Take 1 tablet every 6 hours by oral route for 10 days. 03/25 completed Not Available Not Available Not Available albuterol sulfate 2.5 mg/3 mL (0.083 %) solution for nebulizatio n USE 1 VIAL VIA NEBULIZER THREE TIMES DAILY NEEDED active Not Available Not Available No t Available trazodone 50 mg tablet Take 1 tablet every day by oral route at bedtime for 30 days. 05/18 completed Not Available Not Available Not Available cetirizine 10 mg tablet Take 1 tablet every day by oral route. 06/03 completed Not Available Not Available Not Available ibuprofen 800 mg tablet active Not Available Not Available Not Available prednisone 20 mg tablet TAKE 3 TABLETS BY MOUTH DAILY FOR 5 DAYS 12/22 completed Not Available Not Available Not Available Zithromax Z-Chavez 250 mg tablet TAKE 2 TABLETS (500 MG) BY ORAL ROUTE ONCE DAILY FOR 1 DAY THEN 1 TABLET (250 MG) BY ORAL ROUTE ONCE DAILY FOR 4 DAYS 06/26 completed Not Available Not Available Not Available amoxicillin 500 mg tablet Take 1 tablet every 12 hours by oral route for 10 days. 06/03 completed Not Available Not Available Not Available Aleve 220 mg tablet Take 1 tablet every 12 hours by oral route as needed. 06/26 completed Not Available Not Available Not Available terbinafine HCl 250 mg tablet Take 1 tablet every day by oral route as directed. 09/29 completed Not Available Not Available Not Available nystatin 100,000 unit/gram topical cream APPLY TO THE AFFECTED AREA(S) - GROIN and FEET - BY TOPICAL ROUTE 2 TIMES PER DAY 09/05 completed Not Available Not Available Not Available Viagra 25 mg tablet Take 1 tablet every day by oral route as needed. 01/17 completed Not Available Not Available Not Available prednisone 50 mg tablet TAKE 1 TABLET EVERY DAY 04/22 completed Not Available Not Available Not Available Advair Diskus 250 mcg-50 mcg/dose powder for inhalation Inhale 1 puff twice a day by inhalatio n route. 2024 active Not Available Not Available Not Avai lable diclofenac sodium 75 mg tablet,silvina yed release Take 1 tablet twice a day by oral route for 10 days. 07/12 completed Not Available Not Available Not Available montelukast 10 mg tablet TAKE ONE TABLET BY MOUTH EVERY EVENING 2024 active Not Available Not Available Not Avai lable fluticasone 100 mcg-salmete rol 50 mcg/dose blistr powdr for inhalation INHALE 1 PUFF BY MOUTH TWICE A DAY 12/22 completed Not Available Not Available Not Available ibuprofen 600 mg tablet TAKE ONE TABLET BY MOUTH THREE TIMES A DAY FOR 14 DAYS 06/03 completed Not Available Not Available Not Available methylpredn isolone 4 mg tablets in a dose pack 06/03 completed Not Available Not Available Not Available albuterol sulfate HFA 90 mcg/actuati on aerosol inhaler Inhale 2 puffs every 4 hours by inhalatio n route as needed. 2024 active Not Available Not Available Not Avai lable Vitamin D2 1,250 mcg (50,000 unit) capsule Take 1 capsule every week by oral route. 08/13 completed Not Available Not Available Not Available ketoconazol e 2 % topical cream APPLY TO AFFECTED AREA OF BOTH FEET 1 TIME DAILY 06/03 completed Not Available Not Available Not Available fluticasone propionate 50 mcg/actuati on nasal spray,suspe nsion [place] 1 spray every day by intranasa l route in the evening. 06/03 completed Not Available Not Available Not Available doxycycline hyclate 100 mg tablet 11/10 completed Not Available Not Available Not Available loratadine 10 mg tablet Take 1 tablet every day by oral route in the evening. 12/20 completed Not Available Not Available Not Available naproxen 500 mg tablet TAKE 1 TABLET BY MOUTH TWICE A DAY WITH MEALS 11/15 completed Not Available Not Available Not Available amoxicillin 875 mg-potassiu m clavulanate 125 mg tablet 04/22 completed Not Available Not Available Not Available Bactrim DS 800 mg-160 mg tablet Take 1 tablet every 12 hours by oral route for 5 days. 05/12 completed Not Available Not Available Not Available cyclobenzap rine 5 mg tablet Take 1 tablet twice a day by oral route as needed for 10 days. 08/13 completed Not Available Not Available Not Available Cialis 10 mg tablet TAKE ONE TABLET BY MOUTH EVERY DAY NEEDED 12/20 completed Not Available Not Available Not Available Symbicort 160 mcg-4.5 mcg/actuati on HFA aerosol inhaler 07/12 completed Not Available Not Available Not Available Asmanex HFA 100 mcg/actuati on aerosol inhaler 2 puffs every 12 hours as directed 06/26 completed Not Available Not Available Not Available Qvar RediHaler 40 mcg/actuati on HFA breath activated aerosol Inhale 2 puffs twice a day by inhalatio n route as directed. 12/20 completed Not Available Not Available Not Available Vitals Date Recorded Body height Respiratory rate Body mass index (BMI) Body weight Body temperature Heart rate Oxygen saturation Oxygen saturation in Arterial blood by Pulse oximetry Systolic blood pressure Diastolic blood pressure Provider Name and Address Organization Details Last Updated DateTime 4 167.64 cm 16 /min 30.2 kg/m2 01348.4 7 g 96.8 [degF] 81 /min 98 % 98 % 137 mm[Hg] 84 mm[Hg] Lenora Keenan [place] [facility] 4 10:02:04 Date Recorded Body height Body mass index (BMI) Body weight Oxygen saturation Oxygen saturation in Arterial blood by Pulse oximetry Heart rate Respiratory rate Body temperature Systolic blood pressure Diastolic blood pressure Provider Name and Address Organization Details Last Updated DateTime 4 167.64 cm 29.9 kg/m2 18840.9 4 g 96 % 96 % 81 /min 16 /min 97.1 [degF] 132 mm[Hg] 93 mm[Hg] Xochitl Miller LPN [place] [facility] 4 12:20:41 Date Recorded Body height Respiratory rate Body mass index (BMI) Body weight Body temperature Heart rate Oxygen saturation Oxygen saturation in Arterial blood by Pulse oximetry Systolic blood pressure Diastolic blood pressure Provider Name and Address Organization Details Last Updated DateTime 4 167.64 cm 16 /min 30.4 kg/m2 85063.8 2 g 97.1 [degF] 83 /min 98 % 98 % 140 mm[Hg] 76 mm[Hg] Lenora Keenan [place] - [facility] 4 12:05:02 Date Recorded Body height Respiratory rate Body mass index (BMI) Body weight Body temperature Heart rate Oxygen saturation Oxygen saturation in Arterial blood by Pulse oximetry Systolic blood pressure Diastolic blood pressure Provider Name and Address Organization Details Last Updated DateTime 4 167.64 cm 16 /min 30.1 kg/m2 61049.9 3 g 96.8 [degF] 100 /min 98 % 98 % 129 mm[Hg] 79 mm[Hg] Lenora Keenan [facility] - [facility] 4 14:30:56 Date Recorded Body height Respiratory rate Body mass index (BMI) Body weight Body temperature Heart rate Oxygen saturation Oxygen saturation in Arterial blood by Pulse oximetry Systolic blood pressure Diastolic blood pressure Provider Name and Address Organization Details Last Updated DateTime 5 167.64 cm 16 /min 29.6 kg/m2 09327.1 5 g 98.4 [degF] 89 /min 96 % 96 % 132 mm[Hg] 86 mm[Hg] Lenora Keenan MA [facility] 5 14:22:19 Social History Question Answer Notes LastModified by Organizat ion Details LastModified Time Tobacco Smoking Status Never Smoker Hortensia Orozco MA null, [facility] 06/07/2014 10:55:11 Do You Have An Advance Directive? No Information not available 06/14/2020 What Is Your Level Of Alcohol Consumption? Occasional Information not available 06/07/2014 Are You Blind Or Do You Have Difficulty Seeing? No Information not available 06/14/2020 What Is Your Level Of Caffeine Consumption? Heavy more Than I Should Information not available 01/17/2021 In The 14 Days Before Symptom Onset, Have You Had Close Contact With A Laboratory-confi rmed COVID-19 While That Case Was Ill? No Information not available 06/14/2020 In The 14 Days Before Symptom Onset, Have You Had Close Contact With A Person Who Is Under Investigation For COVID-19 While That Person Was Ill? No Information not available 06/14/2020 Have You Been To An Area Known To Be High Risk For COVID-19? No Information not available 06/14/2020 Are You Currently Employed? Yes Information not available 06/14/2020 Are You Deaf Or Do You Have Serious Difficulty Hearing? No Information not available 06/14/2020 What Type Of Diet Are You Following? REGULAR Information not available 06/14/2020 Which Illicit Or Recreational Drugs Have You Used? Denies [email or web address] Information not available 06/16/2017 Do You Or Have You Ever Used E-cigarettes Or Vape? 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 Yes Information not available 06/14/2020 Live Alone Or With Others? With Others [email or web address] Information not available 06/07/2014 Do You Have A High School Diploma Or Higher Education? Yes Information not available 06/14/2020 Do You Sometimes Have To Miss Your Medical Appointments Due To Difficult Getting Transportation? No Information not available 06/14/2020 Do You Feel Unfairly Treated Due To Things Such As Race, Age, Gender, Disability Or Some Other Reason? No Information not available 06/14/2020 Do You Feel Physically And Emotionally Safe While Living At Home? Yes Information not available 06/14/2020 Do You Feel Physically And Emotionally Safe In Your Neighborhood Or Other Public Places? Yes Information not available 06/14/2020 What Was The Date Of Your Most Recent Tobacco Screening? 05/18/2024 Information not available 05/18/2024 How Many Children Do You Have? 4 [email or web address] Information not available 06/07/2014 Do You Use Protection During Sex? Usually Information not available 06/14/2020 What Is Your Relationship Status? Single Information not available 06/14/2020 Do You Use Your Seat Belt Or Car Seat Routinely? Yes Information not available 06/14/2020 Seat Belts Used Routinely Yes Information not available 06/07/2014 Are You Sexually Active? Yes Information not available 06/14/2020 Smoke Alarm In Home Yes [email or web address] Information not available 06/07/2014 Do You Have Smoke And Carbon Monoxide Detectors In Your Home? Yes Information not available 06/14/2020 Are You Passively Exposed To Smoke? No Information not available 06/14/2020 Do You Or Have You Ever Used Smokeless Tobacco? Never Used Smokeless Tobacco Information not available 12/21/2019 How Much Tobacco Do You Smoke? No [email or web address] Information not available 06/07/2014 General Stress Level Medium Information not available 12/21/2019 Do You Feel Stressed (tense, Restless, Nervous, Or Anxious, Or Unable To Sleep At Night)? [id number] Information not available 06/14/2020 Do You Use Any Illicit Or Recreational Drugs? No Information not available 06/14/2020 Do You Use Sunscreen Routinely? No Information not available 06/14/2020 Has Tobacco Cessation Counseling Been Provided? No Information not available 08/13/2021 On What Date Was Tobacco Cessation Counseling Provided? 05/18/2024 Information not available 05/18/2024 How Many Years Have You Smoked Tobacco? 0 Information not available 12/21/2019 Do You Or Have You Ever Used Any Other Forms Of Tobacco Or Nicotine? No Information not available 01/17/2021 Sex: Male Functional Status Question Answer Note LastModified by Organizat ion Details LastModified Time Are you able to care for yourself? Yes [email or web address] Information not available 06/07/2014 What is your exercise level? Moderate job is physical Information not available 06/14/2020 Mental Status None recorded. Family History Relationship Description Onset Age of this Age Resolved Age Notes LastModified by Organization Details LastModified Time Father No current problems or disability [email or web address] Not available 06/16 09:49:04 Mother No current problems or disability [email or web address] Not available 06/16 09:49:04 Medical History Condition Response Asthma Y Allergies Y Immunizations Vaccine Type Date Status Note Provider Nam e and Address Organization Details Recorded Time pneumococcal polysaccharide PPV23 5 completed Not Available [facility] 04/23/2019 02:29:54 Past Encounters Encounter ID Performer Location Encounter Start Date Encounter Closed Date Diagnosis/Indication Diagnosis SNOMED-CT Code Diagnosis ICD10 Code Diagnosis Note [id number] PIERRE Rasheed ([facility]am [facility]) [address] [place] [address] 06/07/2014 10:35:20 06/07/2014 11:21:12 Tinea pedis 7818038 Onychomycosis [id number] [id number] Suhail Parada (Fam Med) [address] [place] [address] 09/29/2014 16:10:10 09/29/2014 16:49:50 Allergic rhinitis 40835094 Generalized headache 667968105 [id number] Suhail Parada (Fam Med) [address] [place] [address] 11/23/2014 09:36:01 11/23/2014 11:13:43 Asthma 524315529 [id number] uShail Parada (Fam Med) [address] [place] [address] 05/04/2015 12:34:17 05/04/2015 13:45:32 Asthma 679866998 J45.909 Asthmatic bronchitis 405 054466 J45.909 [id number] Martínsepideh Hernandez [place] (Fam Med) [address] [place] [address] 07/24/2015 12:05:10 07/24/2015 17:02:30 Asthmatic bronchitis 145975680 J45.909 Seen in ER recently for exacerbati on. HAs completed treatment and is back to baseline. No new compliants . [id number] Tamar Parada (Fam Med) [address] [place] [address] 06/16/2017 09:24:34 06/26/2017 10:43:21 Moderate persistent asthma 805888390 J45.40 Uncontroll ed. ER 2x / year. Ventolin 1-2 x daily. We will add Qvar. Continue albuterol inh/neb, claritin. Asthmatic bronchitis 405 019922 J45.909 Loratadine refill Environmental allergy 42 6254583 T78.49XA Eval for allergy trigger. Exudative pharyngitis 12 2844022 J02.9 Pt declined eval. [id number] Tamar Parada (Fam Med) [address] [place] [address] 07/07/2017 12:22:04 07/13/2017 10:20:47 Insect bite - wound 360510337 T14.8XXA < 1cm, no induration /swelling/ tenderness . Mild erythema around lesion. Bactrim for 5 days. Asthma 830927742 J45.90 9 Not tried Qvar. Using Ventolin once daily. Advised to try Qvar. [id number] Tamar Parada [address] IM [address] [place] [address] 10/23/2017 09:26:22 10/23/2017 16:00:09 Impotence 478563641 N52.9 PHQ 9 = 6. Basic labs first. Declined exam. If workup neg, pt would like to try Viagra - understood risks. Body mass index 25-29 - overweight 309981152 Z68.25 lifestyle [id number] Tamar Parada 14 IM [address] [place] [address] 11/04/2017 12:20:04 11/05/2017 11:06:58 Candidiasis of skin 02102697 B37.2 Right groin - inner thigh. Hyperpigme nted. Advised longer term treatment until rash is completely gone. Keep area dry. Pain in wrist 44934605 M 25.531 4 weeks - ER in XR neg per pt. Tenderness right on the ulnar head. Pt prefers to monitor. [id number] Tamar Parada 14 IM [address] [place] [address] 01/08/2018 16:13:45 01/11/2018 11:33:24 Cut of finger [id number] S61.219A Cut 1 week ago. Healed very well. Monitor only. Environmental allergy 42 6138324 T78.49XA Eval for allergy trigger. Addendum: multiple allergen - food and environmen t. Refer to [facility]. Wrote a note for his job to transfer to another area / department more friendly for his allergies. [id number] Tamar Parada [address] IM [address] [place] [address] 05/12/2018 15:31:16 05/12/2018 16:19:14 Streptococcal sore throat 24925007 J02.0 Strept postive. Amoxicilli n. [id number] Tamar Parada 14 IM [address] [place] [address] 08/25/2018 10:00:23 08/26/2018 10:22:15 Moderate persistent asthma 727453745 J45.40 History: Uncontroll ed. ER 2x / year. Ventolin 1-2 x daily.We will add Qvar. Continue albuterol inh/neb, claritin. 08/2018: In exacerbati on today. This time with cutting grass. Only on albuterol inhaler/ne b. Neb treatement in clinic today. Resume all meds. Add steroid. [id number] Tamar Parada 14 IM [address] [place] [address] 06/03/2019 10:26:08 06/03/2019 15:09:56 Candidiasis of skin 74626732 B37.2 2018: Right groin - inner thigh. Hyperpigme nted. Advised longer term treatment until rash is completely gone. Keep area dry. 05/2019: Recurred. Hyperpigme nted patch b/l groin, itch. Has athlete feet. Treat feet and groin with nystatin cream. Keep areas dry and clean. Impotence 692036861 N52. 9 PHQ 9 = 6. Basic labs first. Declined exam. If workup neg, pt would like to try Viagra - understood risks. Addendum: workup neg. Start Cialis. [id number] Tamar Parada 14 IM [address] [place] [address] [place] [address] 09/06/2019 08:23:15 09/14/2019 09:56:10 Acute stress disorder 79885584 F43.0 Recent inc stress. Started last week.Divor ce, Custody, COVID 19. Difficulty in public places. Fatigue.PH Q 9 = 11 / SUZANNA 7 - 7.Pt using OTC meds for insomnia. Will get counseling from work.[employer] [place] for FMLA. Asthmatic bronchitis 405 949383 J45.495 [id number] DOLORES COLON NP [facility] [address] [place] [address] 12/21/2019 14:50:23 12/22/2019 05:52:17 Moderate persistent asthma 767329470 J45.40 - Instructed patient if albuterol usage increases beyond 2-3 times per week for 2 weeks, it may been a sign of worsening control.- Call office or go to ER for worsening cough, wheeze or work of breathing. - Follow up in office in 1 months- Patient verbalized understand ing. [id number] DOLORES COLON NP [facility] [address] [place] [address] 06/14/2020 08:50:44 06/15/2020 14:58:57 Moderate persistent asthma 124012704 J45.40 - Instructed patient if albuterol usage increases beyond 2-3 times per week for 2 weeks, it may been a sign of worsening control.- Call office or go to ER for worsening cough, wheeze or work of breathing. - Follow up in office in 1 months- Patient verbalized understand ing. Strain of back muscle 26 3000609 S39.012A Asthma 404619118 J45.90 9 [id number] DOLORES COLON NP [address] [address] 08/29/2020 08:41:17 08/29/2020 18:42:52 Moderate persistent asthma 711861624 J45.40 - Instructed patient if albuterol usage increases beyond 2-3 times per week for 2 weeks, it may been a sign of worsening control.- Call office or go to ER for worsening cough, wheeze or work of breathing. - Follow up in office in 1 months- Patient verbalized understand ing. Environmental allergy 42 3152127 T78.49XS Sleep disorder 48143995 G47.9 Urinary symptoms 8436456 08 R39.9 - Patient c/o increase urge and frequency [id number] DOLORES COLON NP [place] [address] 11/15/2020 08:59:44 11/26/2020 14:42:36 Moderate persistent asthma 287810704 J45.40 - Dwp the importance of taking medication s exactly as ordered; notify Provider if you cannot take medication s as ordered or are having difficulti es or side-effec ts from medication s (do not stop medication s without notifying Provider). - Call office or go to ER for worsening cough, wheeze or work of breathing. - Follow up in office in 3 months- Patient verbalized understand ing. [id number] DOLORES COLON NP [place] 14 IM [address] [facility] [address] [place] [address] [place] [address] 01/17/2021 09:06:01 01/18/2021 15:51:30 Paresthesia 21506968 R20.2 [id number] DOLORES COLON NP [place] [phone] 06/12/2021 11:33:04 06/21/2021 11:09:54 Strain of neck muscle 629089782 S16.1XXA - Counseled on neck pain,- Use heating pad for 15 to 20 minutes every 2 hours- current NSAID and muscle relaxer should help with pain, no addition medication needed- Perform ROM stretching to area. Vitamin D deficiency 347 75747 E55.9 - states did not take medication Moderate p ersistent asthma 889843430 J45.40 - Instructed patient if albuterol usage increases beyond 2-3 times per week for 2 weeks, it may been a sign of worsening control.- Call office or go to ER for worsening cough, wheeze or work of breathing. - Follow up in office in 2 months- Patient verbalized understand ing. [id number] DOLORES COLON NP [facility] [address] [place] [address] 08/13/2021 12:13:55 08/23/2021 12:01:06 Acute sinusitis 00388387 J01.90 - Counseled on sinusitis and medication s/antibiot ic use. Ibuprofen/ Tylenol for pain. Encouraged to increase fluid intake. Humidifier as needed. Moderate p ersistent asthma 558896763 J45.40 - Instructed patient if albuterol usage increases beyond 2-3 times per week for 2 weeks, it may been a sign of worsening control.- Call office or go to ER for worsening cough, wheeze or work of breathing. - Follow up in office in 2 months- Patient verbalized understand ing. [id number] DOLORES COLON NP [facility] [address] [place] [address] 12/04/2021 09:46:11 12/05/2021 19:58:41 Moderate persistent asthma 171633590 J45.40 - Instructed patient if albuterol usage increases beyond 2-3 times per week for 2 weeks, it may been a sign of worsening control.- Call office or go to ER for worsening cough, wheeze or work of breathing. - Follow up in office in 2 months- Patient verbalized understand ing. Obesity 817218821 E66.9 advised low fat, low cholestero l, low carb diet, regular exercise and weight reduction. Spasm of back muscles 20 6547845 M62.830 - Drink plenty of fluids to prevent dehydratio n.- Stretch your muscles every day- Place heating pad on the muscles- RTC if you do not get better as expected. [id number] DOLORES COLON NP [facility] [address] [place] [address] 03/25/2022 12:02:58 03/26/2022 14:28:00 Moderate persistent asthma 725058649 J45.40 - Instructed patient if albuterol usage increases beyond 2-3 times per week for 2 weeks, it may been a sign of worsening control.- Call office or go to ER for worsening cough, wheeze or work of breathing. - Follow up in office in 2 months- Patient verbalized understand ing. Elevated blood-pressure reading without diagnosis of hypertension 389649680 R03.0 - b/p in office today 138/86- Take occasional BP s, call if consistent ly >140/90.- Discussed reasons for sooner f/u than 3 months.- Patient verbalizes understand ing. Spasm of back muscles 20 0506902 M62.830 - Drink plenty of fluids to prevent dehydratio n.- Stretch your muscles every day- Place heating pad on the muscles- RTC if you do not get better as expected. Onychomyco sis of toenails 129201994 B35.1 [id number] DOLORES COLON NP [facility] [address] [place] [address] 06/03/2022 10:40:51 06/04/2022 09:29:31 Overweight 339404357 E66.3 advised low fat, low cholestero l, low carb diet, regular exercise and weight reduction. Sleep medardo tautm disturbance 02857460 G47.9 Elevated blood-pressure reading without diagnosis of hypertension 353912869 R03.0 - b/p in office today 129/90- Take occasional BP s, call if consistent ly >140/90.- Discussed reasons for sooner f/u than 3 months.- Patient verbalizes understand ing. [id number] DOLORES COLON NP [facility] [address] [place] [address] 06/23/2022 11:55:04 06/25/2022 11:21:12 Elevated blood-pressure reading without diagnosis of hypertension 006331438 R03.0 - b/p in office today 143/89- Take occasional BP s, call if consistent ly >140/90.- Discussed reasons for sooner f/u than 3 months.- Patient verbalizes understand ing. Prediabetes 611900493 R7 3.03 Vitamin D deficiency 347 50931 E55.9 Sleep medardo tatum disturbance 02814354 G47.9 - Patient states he has not schedule with pulmonolog ist for sleep study. Patient provided referral informatio n, and encourage to call and schedule appointmen t. Obesity 543837990 E66.9 advised low fat, low cholestero l, low carb diet, regular exercise and weight reduction. [id number] DOLORES COLON NP [place] [address] [place] [address] 09/24/2022 11:32:36 09/26/2022 17:24:07 Sore throat 735502879 J02.9 - Rapid strep negative.- Use over-the-c ounter throat lozenges to soothe pain.- drink plenty of fluids, ( warm/hot teas, or soups may help decrease throat pain).- RTC with worsening symptoms Overweight 779280487 E66 .3 advised low fat, low cholestero l, low carb diet, regular exercise and weight reduction. [id number] DOLORES COLON NP [place] [address] [place] [address] 10/31/2022 09:41:21 11/05/2022 13:58:52 Moderate persistent asthma 206478938 J45.40 - Instructed patient if albuterol usage increases beyond 2-3 times per week for 2 weeks, it may been a sign of worsening control.- Call office or go to ER for worsening cough, wheeze or work of breathing. - Follow up in office in 2 months- Patient verbalized understand ing. Obesity 950934077 E66.9 advised low fat, low cholestero l, low carb diet, regular exercise and weight reduction. [id number] DOLORES COLON NP [facility] [address] [place] [address] 04/22/2023 09:33:24 04/24/2023 14:15:30 Moderate persistent asthma 425521459 J45.40 - Instructed patient if albuterol usage increases beyond 2-3 times per week for 2 weeks, it may been a sign of worsening control.- Call office or go to ER for worsening cough, wheeze or work of breathing. - Follow up in office in 2 months- Patient verbalized understand ing. Strain of tendon of foot and ankle 691427925 S96.912A - Counseled on left sprain. Jac wrap, elevate, ice for 20 minutes every 2-3 hours while awake. Sleep medardo tatum disturbance 55580311 G47.9 - Patient requesting new referral for sleep study Obesity 813771976 E66.9 advised low fat, low cholestero l, low carb diet, regular exercise and weight reduction. [id number] DOLORES COLON NP [facility] [address] [place] [address] 07/13/2023 12:15:11 07/14/2023 13:48:53 Elevated blood-pressure reading without diagnosis of hypertension 779921022 R03.0 - b/p in office today 132/93- Take occasional BP s, call if consistent ly >140/90.- Discussed reasons for sooner f/u than 6 months.- Patient verbalizes understand ing. Obesity 463740545 E66.9 advised low fat, low cholestero l, low carb diet, regular exercise and weight reduction. Moderate p ersistent asthma 566955960 J45.40 - Instructed patient if albuterol usage increases beyond 2-3 times per week for 2 weeks, it may been a sign of worsening control.- Call office or go to ER for worsening cough, wheeze or work of breathing. - Follow up in office in 2 months- Patient verbalized understand ing. [id number] DOLORES COLON NP [facility] [address] [place] [address] 11/11/2023 11:52:38 11/17/2023 13:52:29 Sleep pattern disturbance 34157700 G47.9 - Patient requesting new referral for sleep study. Obesity 728883246 E66.9 advised low fat, low cholestero l, low carb diet, regular exercise and weight reduction. Moderate p ersistent asthma 847724090 J45.40 - Instructed patient if albuterol usage increases beyond 2-3 times per week for 2 weeks, it may been a sign of worsening control.- Call office or go to ER for worsening cough, wheeze or work of breathing. - Follow up in office in 2 months- Patient verbalized understand ing. Elevated blood-pressure reading without diagnosis of hypertension 791160218 R03.0 - b/p in office today 140/76- Take occasional BP s, call if consistent ly >140/90.- Discussed reasons for sooner f/u than 1 months.- Patient verbalizes understand ing. [id number] DOLORES COLON NP [facility] [address] [place] [address] 12/23/2023 14:17:04 01/06/2024 11:46:34 Sleep pattern disturbance 59874726 G47.9 - Patient requesting new referral for sleep study. Obesity 275465740 E66.9 advised low fat, low cholestero l, low carb diet, regular exercise and weight reduction. Elevated blood-pressure reading without diagnosis of hypertension 764275295 R03.0 - Resolved- b/p in office today 129/79- Take occasional BP s, call if consistent ly >140/90.- Discussed reasons for sooner f/u than 1 months.- Patient verbalizes understand ing. [id number] DOLORES COLON NP [facility] [address] [place] [address] 05/18/2024 13:55:22 05/20/2024 09:55:47 Respiratory tract congestion and cough 210521790 R05.9 Increase fluid intake, rest, and humidifier use.Recomm ended OTC decongesta nts and cough suppressan ts as needed.If symptoms persist >10 days, worsen, or are accompanie d by high fever, will reassess for possible bacterial infection. Educated patient on red flag symptoms (difficult y breathing, persistent high fever, worsening symptoms). Moderate p ersistent asthma 083340238 J45.40 - Instructed patient if albuterol usage increases beyond 2-3 times per week for 2 weeks, it may been a sign of worsening control.- Call office or go to ER for worsening cough, wheeze or work of breathing. - Follow up in office in 4 months- Patient verbalized understand ing. Positive s creening for depression on PHQ-9 (Patient Health Questionnaire 9) 7269687582 99404 Z13.31 Mild Depression (PHQ-9)- Discussed symptoms of depression /anxiety as well as the different treatment types.- No immediate pharmacolo gic interventi on; focus on lifestyle modificati ons.- All questions and concerns were addressed. - Pt is to monitor symptoms and RTC sooner if symptoms are worsening or not improving. Goals Section Goal Description Progress Status Start Date LastModified by Organization Details LastModified Time Adequate Sleep Achieves adequate, well-rested sleep with minimal disruption [facility] Xochitl Miller LPN Information not available 07/28/2023 18:21:15 Recreation al Activities Participates in recreational activities [facility] 2023 Xochitl Miller LPN Information not available 07/28/2023 18:23:36 Medication Regimen Follows medication regimen as per care team recommendation (s) [facility] active 2023 Xochitl Miller LPN Information not available 07/28/2023 18:24:35 Follow-up Appointmen t(s) Attends referral and/or follow-up appointment(s) as per care team recommendation (s) [facility] active 2023 Xochitl Miller LPN Information not available 07/28/2023 18:24:35 Weight Maintenanc e Exhibits stable weight with normal fluctuation [facility] Xochitl Miller LPN Information not available 07/28/2023 18:21:15 Activities of Daily Living Performs activities of daily living independently or with minimal assistance [facility] Xochitl Miller LPN Information not available 07/28/2023 18:22:36 Weight Loss Decreases body weight as per care team recommendation (s) [facility] active 2023 Xochitl Miller LPN Information not available 07/28/2023 18:23:36 Food Security Reports ability to access and obtain foods to meet nutritional needs [facility] Xochitl Miller LPN Information not available 07/28/2023 18:21:15 Chronic Condition Action Plan Follows action plan for any worsening of chronic condition(s) as per care team recommendation (s) [facility] active 2023 Xochitl Miller LPN Information not available 07/28/2023 18:22:36 Blood Pressure Maintains blood pressure goal as defined by care team [facility] active 2023 Xochitl Miller LPN Information not available 07/28/2023 18:24:35 Financial Stability Reports financial status and/or income meets needs [facility]23 Xochitl Miller LPN Information not available 07/28/2023 18:21:15 Smoking Cessation Quits smoking [facility] active 2023 Xochitl Miller LPN Information not available 07/28/2023 18:21:15 Exercise Regularly Follows a regular exercise regimen or instructed exercise plan as per care team recommendation (s) [facility] active 2023 Xochitl Miller LPN Information not available 07/28/2023 18:24:35 Diet Adherence Follows prescribed or recommended diet [facility] active 2023 Xochitl Miller LPN Information not available 07/28/2023 18:24:35 Health Concerns Section Related Observation LastModified by Organization Detai ls LastModified Time None Recorded Concern Status LastModified by Organization Details LastModified Time Asthma Active Xochitl Miller LPN Not Available 18:22:36 Elevated blood-pressure reading without diagnosis of hypertension Active Xochitl Miller LPN Not Available 07/28/2023 1 8:24:35 Obesity Active Xochitl Miller LPN Not Available 18:23:36 Advance Directives Directive N: Payers Encounter Date Sequence Insurance Name Policy Number Policy Rodriguez Covered Member ID Rodriguez Member ID Guarantor Name 04/22/2023 1 [facility] [id number] [facility] Radha Stiven-Bar trino [id number] [facility] Radha Saleem Barbosa 07/13/2023 1 [facility] [id number] [facility] Radha Zhangiott-Bar trino [id number] [facility] Radha Barbosa 11/11/2023 1 [facility] [id number] [facility] Radha Stiven-Bar trino [id number] [facility] Radha Saleem Barbosa 12/23/2023 1 [facility] [id number] [facility] Radha Zhangiott-Bar trino [id number] [facility] Radha Saleem Barbosa 05/18/2024 1 [facility] [id number] [facility] Radha Stiven-Bar trino [id number] [facility] Radha Saleem Barbosa Notes Date Note Type Note Provider Name and Address Organization Details Recorded Time 04/22/2023 text/html Asthma F/UReport ed bypatient.Severity:able to sleep during episode; does not interfere with daily activities Context:improving Associated Symptoms:no fever; no fatigue; no irritability; no cough; normal appetite; no changes in productivity; no shortness of breathFootReported bypatient.Location:left Quality:aching Severity:moderate Duration:1 weeks Timing:acute Aggravating Factors:walking Associated Symptoms:no weakness; no numbness; no tingling; no swelling; no redness; no warmth; no ecchymosis; no catching/locking; no popping/clicking; no buckling; no grinding; no instability; no radiation down leg; no drainage; no fever; no chills; no weight loss; no change in bowel/bladder habits Prior Imaging:x ray Mr. Barbosa presented in office today for f/u appointment. Patient c/o left foot strain x 1 week. DOLORES COLON NP Attn: Accounting,[address] [place], [place], [address] [place] [address], [facility] 04/23/2023 14:15:15 07/13/2023 text/html Mr. Barbosa prese nted in office today for follow up appointment. Patient requests that an Ameren form be filled out in order to keep his electricity on. DOLORES COLON NP Attn: Accounting,[address] [place], [place], [address] [place] [address], [facility] 07/13/2023 12:58:42 07/13/2023 text/html Asthma F/UReport ed bypatient.Severity:able to sleep during episode; does not interfere with daily activities Onset/Timing:chronic Context:same DOLORES COLON NP Attn: Accounting,[address] [place], [place], [address] [place] [address], [place] [facility] 07/13/2023 12:58:42 11/11/2023 text/html Asthma F/UReport ed bypatient.Severity:uses nebulizer/inhaler an average of <2 times/week lately Onset/Timing:chronic Context:sameSleep ProblemsReported bypatient.General Sleep:snoring;witnessed apnea;unrefreshing sleep Onset/Timing:progressiv kirsten worse over last 6months Severity:moderate;inter ference with work Location of sleep apnea:no dryness of mouth; no chest congestion Pain disturbing sleep:headache Mr. Barbosa presented in office today for follow up appointment. DOLORES COLON NP Attn: Accounting,[address] [facility], [place], [address], [facility] 11/16/2023 09:22:16 12/23/2023 text/html Mr. Barbosa prese nted in office today for follow up appointment DOLORES COLON NP Attn: Accounting,[address] [facility], [place], [address], [facility] 01/04/2024 22:58:03 05/18/2024 text/html Upper Respirator y SymptomsReported bypatient.Location:[facility] Quality:colored phlegm;congested Severity:moderate Context:no foreign travel;asthma Associated Symptoms:no shortness of breath; no fever;yellow-green, thick sputum;wheezing Mr. Barbosa presents for a follow-up appointment, reporting a cough and congestion for the past four days. DOLORES COLON NP Attn: Accounting,[address] [facility], [place], [address], [place] [facility] 05/18/2024 14:55:59
--- OUTSIDE RECORDS SUMMARY | 2024-06-18 18:13 | XMS_ITS | Clinical Summary ---
Author Organization [id number] Address [address] [place] [address] Phone Care Team Providers Care Maintenance Tech Name Role Phone Jay, Dolores Rush APRN, TONY Primary Care Provider Allergies Active Allergy Reactions Criticality Noted Date Comments Peanut Butter Flavoring Agen t (Non-Screening) Shortness of Breath 11/21/2018 Medications albuterol 108 (90 Base) MCG/ACT Aerosol Solution take 2 Puffs by inhalation every 6 hours as needed for Wheezing or Cough. 18 g 2 Active budesonide (PULMICORT) 90 MCG/ACT AEROSOL POWDER, BREATH ACTIVATED take 1 Puff by inhalation every 12 hours. 1 Each 2 Active albuterol 108 (90 Base) MCG/ACT Aerosol Solution take 2 Puffs by inhalation every 6 hours as needed for Wheezing or Cough. 18 g 2 Active Additional Information Patient not taking.Reported on 06/19/2023 predniSONE (DELTASONE) 50 MG Tablet Take 1 Tablet by mouth daily. 5 Tablet 2 Active Additional Information Patient not taking.Reported on 06/19/2023 montelukast (SINGULAIR) 10 MG Tablet Take 1 Tablet by mouth daily. 30 Tablet 3 Active albuterol 108 (90 Base) MCG/ACT Aerosol Solution take 2 Puffs by inhalation every 6 hours as needed for Wheezing. 18 g 3 Active Additional Information Patient not taking.Reported on 06/19/2023 albuterol 108 (90 Base) MCG/ACT Aerosol Solution take 2 Puffs by inhalation every 6 hours as needed for Wheezing or Cough. 8 g 4 Active Additional Information Patient not taking.Reported on 06/19/2023 budesonide-form oterol fumarate (Symbicort) 160-4.5 MCG/ACT Aerosol take 2 Puffs by inhalation 2 times daily. Active Fluticasone-Cb meterol (ADVAIR DISKUS IN) take by inhalation. Active Active Problems Problem Noted Date Diagnosed Date Mild persistent asthma without complication 09/04 Social History Tobacco Use Types Packs/Day Years Used Date Smoking Tobacco: Never Smokeless Tobacco: Never Tobacco Cessation:Counseling Given: Not Answered Alcohol Use Standard Drinks/Week Comments Yes 0 (1 standard drink = 0.6 oz pur e alcohol) rarely Sex and Gender Information Value Date Recorded Sex Assigned at Not on file Legal Sex Male 8:52 PM CDT Gender Identity Not on file Sexual Orientation Not on file Last Filed Vital Signs Vital Sign Reading Time Taken Comments Blood Pressure 139/87 06/11/2023 1:29 PM FISCAL CLERK Pulse 79 06/11/2023 1:29 PM FISCAL CLERK Temperature 35.9 C (96.7 F) 06/11/2023 11:51 AM FISCAL CLERK Respiratory Rate 17 06/11/2023 1:29 PM FISCAL CLERK Oxygen Saturation 96% 06/11/2023 1:29 PM FISCAL CLERK Inhaled Oxygen Concentration - - Weight 81.6 kg (180 lb) 06/11/2023 11:51 AM FISCAL CLERK Height 167.6 cm (5' 6 ) 06/11/2023 11:51 AM FISCAL CLERK Body Mass Index 29.05 06/11/2023 11:51 AM FISCAL CLERK Plan of Treatment Health Maintenance Due Date Last Done Comments Hepatitis C Virus (HCV) Screening 1976 TdaP Immunization 1976 Hepatitis B Immunization (1 of 3 - 19+ 3-dose series) 08/12/1995 Pneumococcal Immunization Combined (2 of 2 - PCV) 11/24/2015 11/23/2014 Colonoscopy 2021 Colorectal Cancer Screening 2021 Influenza Immunization (#1) 2023 SARS-COV-2 Immunization (2023-25 season) 2023 Respiratory Syncytial Virus (RSV) Immunization (Adult) (1 - 1-dose 75+ series) 08/12/2051 DTaP/Tdap/Td Immunization Discontinued 05/03/2013 Meningococcal Immunization (ACWY) Aged Out No longer eligible based on patient's age to complete this topic Rotavirus Immunization Aged Out No lo nger eligible based on patient's age to complete this topic Insurance [facility] Member Subscriber Plan / Payer (Ef fective 2022-Present) Name:Perla Martins Relation to Subscriber:Self Name:Perla Martins Payer ID:[id number] (NAIC) Type:Not on file Address: [facility] [id number] [place] [id number] Care Teams Maintenance Tech Relationship Specialty Start Date End Date Dolores Thompson APRN, SIDE [employer]OR WORK[employer] [address] [place] [address] PCP - General Advanced Practice Nurse 07/11/21
[2024-06-18 18:16] VITALS: BP 130/111; PULSE 83; RESP 18; TEMP 36.3; O2SAT 98
--- NOTE | 2024-06-18 18:40 | ED_ITS ---
HPI - Eye Problem General Chief complaint: Eye Problems Stated complaint: Left Eye Problem Time Seen by Provider: 06/18/24 18:41 Source: patient, RN notes reviewed and old records reviewed Mode of arrival: ambulatory Limitations: no limitations History of Present Illness HPI Narrative: 48 YEAR OLD MALE PRESENTS TO [facility] CARE WITH COMPLAINTS OF LEFT EYE DISCOMFORT AND REDNESS AFTER HE THINKS HIS CPAP CAME LOOSE DURING THE NIGHT AND blew into his left eye. Patient reports that since this morning he has had redness and irritation to his left eye. Patient reports no sharp pain to his right eye and has been using refresh eye drops every 2-4 hours without any improvement. Patient reports that he has not noted any drainage from his left eye,states concern for infection. MD chief complaint: eye pain and eye redness (LEFT EYE) Onset (ago): day(s) (noted this morning upon awakening) Onset description: awoke with symptoms Location: left eye Eye Symptoms: redness and other (discomfort,irritation feeling) Treatments Prior to Arrival: other (Refresh eye drops) Related Data Home Medications ?Medication ?Instructions ?Recorded ?Confirmed ?Last Taken ?Type albuterol sulfate 2.5 mg/3 mL See Rx Instructions .Route 07/11/23 12/27/23 Unknown History (0.083 %) solution for nebulization .COMPLEX PRN sob albuterol sulfate 90 mcg/actuation See Rx Instructions .Route 07/11/23 12/27/23 Unknown History aerosol inhaler .COMPLEX PRN sob Allergies Allergy/AdvReac Type Severity Reaction Status Date / Time No Known Allergies Allergy Verified 12/27/23 11:14 Review of Systems Review of Systems: CONSTITUTIONAL: Denies fever, chills, or sweats. EYES: Denies visual changes. Reports redness,, irritation, NO DISCHARGE OR FEELINGS OF FOREIGN BODY IN LEFT EYE since awakening this morning denies any change in his vision. ENT: Denies rhinorrhea, congestion, sore throat, or otalgia. CARDIOVASCULAR: Denies chest pain, palpitations, or edema. RESPIRATORY: Denies cough or dyspnea. SKIN: Denies rash or itching. NEUROLOGIC: Denies headache All systems reviewed & are unremarkable except as noted in HPI and below PMFSH Past Medical History Medical History Bronchitis Back pain Asthma Surgical History Surgical History No pertinent past surgical history Family History Family History Mother Family history non-contributory Social History Social History Smoking status: Never smoker Alcohol intake: current Alcohol use details: social Substance use type: does not use Living arrangements: with family Gender identity (if verbalized by the patient): Male Spiritual care concerns: No Comments At time of signature, agree with nursing past medical, surgical, social and family history. There is no relevant family history pertinent to the presenting complaint Exam Narrative: GENERAL: Well-appearing, well-nourished, and in no acute distress. HEAD: Normocephalic, atraumatic. EYES: PERRLA and EOMI. Upper and lower eyelids unremarkable. No periorbital cellulitis noted. Sclera left eye red and irritated with no visual change or drainage, conjunctiva clear, Right eye normal without complaints. Visual acuity right eye 20/100. Left eye 20/30 without correction ENT: Nares clear, no rhinorrhea or epistaxis. Mucous membranes moist. NECK: Supple. no lymphadenopathy CHEST: Clear to auscultation. No respiratory distress. no cough or congestion, SAO2 98% on room air HEART: Regular rate and rhythm. No murmur heard. Normal peripheral pulses. SKIN: Warm, dry, no rash. NEURO: No focal deficits. Alert and oriented x3. Course Course Emergency Course: Patient is aware of diagnosis, understands and agrees to treatment plan. Anticipatory guidance given. Patient agrees to follow-up as directed and is aware of reasons to seek care at the emergency department. Portions of this record may have been created with voice recognition software Level of Care: Express Care Visit Vital Signs Vital signs: Vital Signs Temperature 36.3 C L 06/18/24 18:16 Pulse Rate 83 06/18/24 18:16 Respiratory Rate 18 06/18/24 18:16 Blood Pressure 130/111 H 06/18/24 18:16 Pulse Oximetry 98 06/18/24 18:16 Oxygen Delivery Room Air 06/18/24 18:16 Temperature 36.3 C L 03/15/25 18:16 Pulse Rate 83 06/18/24 18:16 Respiratory Rate 18 06/18/24 18:16 Blood Pressure 130/111 H 06/18/24 18:16 Pulse Oximetry 98 06/18/24 18:16 Oxygen Delivery Room Air 06/18/24 18:16 Reviewed MDM - Eye Problem MDM Narrative Medical decision making narrative: Consideration of the following conditions may be warranted for the presenting problem, they are not final diagnoses: Bacterial conjunctivitis, allergic conjunctivitis, viral conjunctivitis, foreign body, blepharitis, chalazion, hordeolum, corneal abrasion.? Exam findings show no acute concerns or changes; patient is non-toxic appearing and is in no distress.? Patient is appropriate for outpatient treatment and follow-up. Differential Diagnosis Differential diagnosis: Likely corneal abrasion, conjunctivitis, subconjunctival hemorrhage and other (irritation to left eye,sclera abrasion, infection) Medical Records Attestation: I reviewed the patient's medical records. Critical Care Time Critical Care Time Critical Care Time: No Discharge Plan Discharge Clinical Impression: Irritation of left eye Patient Disposition: Home, Self-Care Condition: Stable Instructions: Antibiotic Form Additional Instructions: COLD COMPRESSES TO THE EYES FOR COMFORT MAY NEED WARM COMPRESSES TO REMOVE DEBRIS IN THE MORNING WHEN CLEANING THE EYES USED A WASHCLOTH IN ONE DIRECTION THEN CHANGE WASHCLOTHS OR USE A COTTON BALL IN ONE DIRECTION AND THEN HIS COTTON BALLS EYEDROPS DIRECTED--MAY BE MORE SOOTHING IF LEFT IN THE REFRIGERATOR DO NOT SHARE MEDICINE--DO NOT TOUCH THE EYE WITH THE MEDICINE TYLENOL OR IBUPROFEN FOR PAIN AVOID SCREEN TIME--TELEVISION, COMPUTER, TABLET OR PHONE. ALSO NO READING OR DRIVING FOLLOW-UP WITH PCP OR TREAD BOOKER DIRECTED IF NO IMPROVEMENT 2 DAYS IF YOUR SYMPTOMS PERSIST, CHANGE OR WORSEN SIGNIFICANTLY BEFORE YOU CAN CONTACT YOUR PERSONAL PHYSICIAN THEN PLEASE, WITHOUT DELAY, GO TO THE EMERGENCY DEPARTMENT FOR FURTHER EVALUATION. FOLLOW-UP WITH PCP IN 7-10 DAYS OR SOONER IF NEEDED FOLLOW UP WITH PCP SOON IN REGARDS TO YOUR BLOOD PRESSURE WHICH IS ELEVATED ABOVE THRESHOLD FOR REFERRAL. BLOOD PRESSURE ABOVE 120/80 MAY INDICATE PRE- HYPERTENSION.130/111 RECHECK MANUAL 130/90 Patient Language: Lithuanian Prescriptions: New ofloxacin 0.3 % drops See Rx Instructions .ROUTE .COMPLEX Qty: 10 0RF Rx Instructions: put 1-2 drps into affected eye(s) every 2-4 h x 2 days, then 1-2 drps 4 times/day days 3-7 No Action albuterol sulfate 2.5 mg /3 mL (0.083 %) solution for nebulization See Rx Instructions .ROUTE .COMPLEX PRN (Reason: sob) Rx Instructions: as prescribed albuterol sulfate 90 mcg/actuation HFA aerosol inhaler See Rx Instructions .ROUTE .COMPLEX PRN (Reason: sob) Rx Instructions: as prescribed fluticasone propion-salmeterol [Advair Diskus] 500-50 mcg/dose blister with device 1 inh inhalation Q12H Qty: 60 0RF Rx Instructions: Rinse mouth after each use prednisone 20 mg tablet 40 mg PO DAILY 5 Days Qty: 10 0RF Zyrtec 10 mg capsule 10 mg PO DAILY 30 Days Qty: 30 0RF Follow-up/Referrals: Jay,LILY Bernal [Primary Care Provider] - Time of Disposition: 18:57 Quality Judy Coma Scale Eyes: Open Verbal: Oriented and Alert Motor: Follows Commands [place] Coma Total Score: 15
== END 2024-06-18 19:02 | disposition home or self-care (01) ==
PROVIDERS: Emergency Provider Registered Nurse; PCP Nurse Practitioner Family
DX: H57.12 Ocular pain, left eye (principal); J45.909 Unspecified asthma, uncomplicated
CPT/HCPCS: 99213; G0463

== ENCOUNTER 2024-07-10 17:05 | Emergency (ER) | payer OTHER, SELFPAY ==
--- OUTSIDE RECORDS SUMMARY | 2024-07-10 17:08 | XMS_ITS | Data Portability ---
Author Organization [facility] SISkip [facility] Address [address] [place] [address] [address] Prov[address] Care Ct Scan Technician Name Role Phone DOLORES COLON Primary Care [...] Referral pulmonol ogist referral 2023 024 cody Fontenot MD, [address] [facility] , [address], [place], [address], 03/10/2024 16:10:47 pulmonol ogist referral 2023 024 cody Breaux MD, [address] [facility], Third Floor, [place], [address], 10/13/2023 13:00:43 Procedures None recorded . Surgeries None recorded . Imaging None recorded . Medication Orders Advair Diskus 250 mcg-50 mcg/dose powder for inhalati on 2024 025 [id number], [address], [place], [id number], 05/18/2024 14:36:29 albutero l sulfate HFA 90 mcg/actu ation aerosol inhaler 2024 025 [facility][id number], [address], [place], [id number], 05/18/2024 14:36:28 monteluk ast 10 mg tablet 2024 025 [facility][id number], [address], [place], [id number], 05/18/2024 14:36:27 albutero l sulfate 2.5 mg/3 mL (0.083 %) solution for nebuliza tion 2023 024 [facility][id number], [address], [place], [id number], 11/16/2023 09:20:54 monteluk ast 10 mg tablet [address] [id number], [address], [place], [id number], 05/18/2024 14:13:23 albutero l sulfate HFA 90 mcg/actu ation aerosol inhaler 2023 024 [facility][id number], [address] [place], [id number], 11/16/2023 09:20:54 Advair Diskus 250 mcg-50 mcg/dose [...] By Organization Details Last Modified Time 04/22/2023 [id number] strain or sprain : care instructions Not available 04/22/2023 10:24:08 - Always present to ER or Urgent Care with any progression of/alarming symptoms, significant changes in symptoms or any concerning or urgent matters Not available 04/22/2023 10:21:03 07/13/2023 [id number] A healthy lifestyle: care instructions Not available 07/13/2023 12:57:31 - Always present to ER or Urgent Care with any progression of/alarming symptoms, significant changes in symptoms or any concerning or urgent matters Not available 07/13/2023 12:53:46 11/11/2023 [id number] A healthy lifestyle: care instructions Not available 11/16/2023 09:16:30 - Always present to ER or Urgent Care with any progression of/alarming symptoms, significant changes in symptoms or any concerning or urgent matters Not available 11/16/2023 09:16:06 12/23/2023 [id number] A healthy lifestyle: care instructions Not available 01/04/2024 22:57:30 - Always present to ER or Urgent Care with any progression of/alarming symptoms, significant changes in symptoms or any concerning or urgent matters Not available 12/23/2023 14:36:36 05/18/2024 [id number] - Always present to ER or Urgent Care with any progression of/alarming symptoms, significant changes in symptoms or any concerning or urgent matters Not available 05/18/2024 14:29:13 Reason for Referral Lye Treater Referral for S leep pattern disturbance Referring Physician: Dolores Colon [facility], Encounter Date: 04/22/2023 Lye Treater Referral for S leep pattern disturbance Referring Physician: Dolores Colon [facility], Encounter Date: 11/11/2023 Problems Name Problem SNOMED Code Status Onset Date Resolution Date Notes Provider Name and Address Organization Details Recorded Time Moderate persisten t asthma 964865974 Active 2017 DOLORES COLON NP Attn: Nabil villegas,[address] [place], [address] [facility] [place] [facility] 4 16:50:22 Environme ntal allergy 515467377 Active 2017 Tamar [place] [facility] 8 07:25:25 Asthmatic bronchiti s 611612287 Active 2017 Tamar [place]queline [place] [facility] [place] 07:25:25 Exudative pharyngit is 583774915 Active 2017 Tamar [place]qu[place] [facility] [place] 07:25:25 Insect bite - wound 261180557 Active 2017 Tamar [place] [facility] [place] 15:31:00 Impotence Active 2017 Tamar [place] [facility] [place] 10:24:21 Body mass index 25-29 - overweigh t 363716252 Active 2017 Tamar [place] [facility] [place] 10:25:31 Pain in wrist 24066248 Active 2017 Tamar [place]iley, [place] [facility] [place] 12:45:36 Candidias is of skin 06935128 Active 2017 Tamar [place] [facility] 8 12:45:40 Streptoco ccal sore throat 36959470 Completed 201806/12/2020 DOLORES COLON NP Attn: Nabil bakari,[address] [facility], [place], [address], [place] [facility] 1 21:30:02 Acute stress disorder 74351586 Active 2019 Tamar [place]iley, [place] [facility] 0 14:56:16 Strain of back muscle 754469542 Active 2020 DOLORES COLON NP Attn: Nabil villegas,[address] [place], [address], [place] [facility] 1 13:57:10 Elevated blood-pre ssure reading without diagnosis of hypertens ion 325363593 Active 2021 DOLORES COLON NP Attn: Nabil bakari,[address] [place], [address], [place] [facility] 4 16:50:22 Spasm of back muscles 669778152 Active 2021 DOLORES COLON NP Attn: Nabil bakari,[address] [place], [address], [place] [facility] 2 12:31:40 Onychomyc osis of toenails 053483981 Active 2021 DOLORES COLON NP Attn: Nabil bakari,[address] [place] [address], [address], [place] [facility] 2 12:31:42 Tinea pedis 8828394 Active Tamar [place] [facility] 8 07:25:25 Onychomyc osis 120463285 Active Tamar [place]iley[place] [facility] 8 07:25:25 Sleep pattern disturban ce 46224664 Active 2022 DOLORES COLON NP Attn: Nabil villegas,[address] [facility], [place], [address], [place] [facility] 4 16:50:22 Obesity 234019167 Active 2022 DOLORES COLON NP Attn: Estebantosha villegas,[address] [facility], [place], [address], [place] [facility] 4 16:50:22 Overweigh t 278914088 Active 2022 DOLORES COLON NP Attn: Estebantosha villegas,[address] [facility], [place], [address], [place] [facility] 3 11:11:42 Strain of tendon of foot and ankle 811615969 Active 2023 DOLORES COLON NP Attn: Nabil bakari,[address] [facility], [place], [address], [place] [facility] 4 10:23:27 Positive screening for depressio n on PHQ-9 (Patient Health Questionn aire 9) 538891278009 100 Active 2024 DOLORES COLON NP Attn: Estebantosha villegas,[address] [place], [address], [place] [facility] 5 14:53:25 Allergic rhinitis 64700255 Active Tamar [place] [facility] 8 07:25:25 Generaliz ed headache 776004287 Active Tamar [place] [facility] 8 07:25:25 Asthma 011449940 Completed 08/29/2020 DOLORES COLON NP Attn: Nabil villegas,[address] [place], [address], [place] [facility] 1 09:00:31 Asthmatic bronchiti s 637249773 Completed 06/16/2017 Tamarkvng Parsons null, [place] - [...] Not Available Not Available Not Available nystatin 309548 unit/gm crea 12/20 completed Not Available Not [...] propionate 50 mcg/actuati on nasal spray,suspe nsion Marcus 1 spray every day by intranasa l [...] 4 167.64 cm 16 /min 30.2 kg/m2 82902.4 7 g 96.8 [degF] 81 /min 98 % 98 % 137 mm[Hg] 84 mm[Hg] Lenora Keenan [place] [facility] 4 10:02:04 Date Recorded Body height Body mass index (BMI) Body weight Oxygen saturation Oxygen saturation in Arterial blood by Pulse oximetry Heart rate Respiratory rate Body temperature Systolic blood pressure Diastolic blood pressure Provider Name and Address Organization Details Last Updated DateTime 4 167.64 cm 29.9 kg/m2 22915.9 4 g 96 % 96 % 81 /min 16 /min 97.1 [degF] 132 mm[Hg] 93 mm[Hg] Xochitl Miller LPN [place] [facility] 4 12:20:41 Date Recorded Body height Respiratory rate Body mass index (BMI) Body weight Body temperature Heart rate Oxygen saturation Oxygen saturation in Arterial blood by Pulse oximetry Systolic blood pressure Diastolic blood pressure Provider Name and Address Organization Details Last Updated DateTime 4 167.64 cm 16 /min 30.4 kg/m2 17903.8 2 g 97.1 [degF] 83 /min 98 % 98 % 140 mm[Hg] 76 mm[Hg] Lenora Keenan [place] [facility] 4 12:05:02 Date Recorded Body height Respiratory rate Body mass index (BMI) Body weight Body temperature Heart rate Oxygen saturation Oxygen saturation in Arterial blood by Pulse oximetry Systolic blood pressure Diastolic blood pressure Provider Name and Address Organization Details Last Updated DateTime 4 167.64 cm 16 /min 30.1 kg/m2 94583.9 3 g 96.8 [degF] 100 /min 98 % 98 % 129 mm[Hg] 79 mm[Hg] Lenora Keenan [facility] - [facility] 4 14:30:56 Date Recorded Body height Respiratory rate Body mass index (BMI) Body weight Body temperature Heart rate Oxygen saturation Oxygen saturation in Arterial blood by Pulse oximetry Systolic blood pressure Diastolic blood pressure Provider Name and Address Organization Details Last Updated DateTime 5 167.64 cm 16 /min 29.6 kg/m2 34816.1 5 g 98.4 [degF] 89 /min 96 % 96 % 132 mm[Hg] 86 mm[Hg] Lenora Keenan MA [facility] 5 14:22:19 Social History Question Answer Notes LastModified by Organizat ion Details LastModified Time Tobacco Smoking Status Never Smoker Hortensia Orozco MA null, [facility] 06/07/2014 10:55:11 Do You Have An Advance [...] not available 12/21/2019 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 Yes Information not available 06/14/2020 Live Alone Or With Others? With Others [email or web address] Information not available 06/07/2014 Do You Have [...] How Many Children Do You Have? 4 [email or web address] Information not available 06/07/2014 Do You Use Protection During Sex? Usually Information not available 06/14/2020 What Is Your Relationship Status? Single Information not available 06/14/2020 Do You Use Your Seat Belt Or Car Seat Routinely? Yes Information not available 06/14/2020 Seat Belts Used Routinely Yes [email or web address] Information not available 06/07/2014 Are You Sexually Active? Yes Information not available 06/14/2020 Smoke Alarm In Home Yes Information not available 06/07/2014 Do You Have Smoke And Carbon Monoxide Detectors In Your Home? Yes Information not available 06/14/2020 Are You Passively Exposed To Smoke? No Information not available 06/14/2020 Do You Or Have You Ever Used Smokeless Tobacco? Never Used Smokeless Tobacco Information not available 12/21/2019 How Much Tobacco Do You Smoke? No [email or web address] Information not available 06/07/2014 General Stress Level Medium Information not available 12/21/2019 Do You Feel Stressed (tense, Restless, Nervous, Or Anxious, Or Unable To Sleep At Night)? [id number] Information not available 06/14/2020 Do You Use [...] you able to care for yourself? Yes [email or web address] Information not available 06/07/2014 What is your [...] pneumococcal polysaccharide PPV23 5 completed [facility] Available [facility] 04[facility]2019 02:29:54 Past Encounters Encounter ID Performer Location Encounter Start Date Encounter Closed Date Diagnosis/Indication Diagnosis SNOMED-CT Code Diagnosis ICD10 Code Diagnosis Note [id number] PIERRE Rasheed (Fam Med) [address] [place] [address] 06/07/2014 10:35:20 06/07/2014 11:21:12 Tinea pedis 5496133 Onychomycosis 144166268 [id number] Suhail Parada (Fam Med) [address] [place] [address] 09/29/2014 16:10:10 09/29/2014 16:49:50 Allergic rhinitis 45142333 Generalized headache 833344685 [id number] Suhail Parada (Fam Med) [address] [place] [address] 11/23/2014 09:36:01 11/23/2014 11:13:43 Asthma 334635877 [id number] Suhail Parada (Fam Med) [address] [place] [address] 05/04/2015 12:34:17 05/04/2015 13:45:32 Asthma 595759061 J45.909 Asthmatic bronchitis 405 416974 J45.909 [id number] Martínsepideh Hernandez [place] (Fam Med) [address] [place] [address] 07/24/2015 12:05:10 07/24/2015 17:02:30 Asthmatic bronchitis 977392955 J45.909 Seen in ER recently for exacerbati on. HAs completed treatment and is back to baseline. No new compliants . [id number] Tamar Parada (Fam Med) [address] [place] [address] 06/16/2017 09:24:34 06/26/2017 10:43:21 Moderate persistent asthma 630872547 J45.40 Uncontroll ed. ER 2x / year. Ventolin 1-2 x daily. We will add Qvar. Continue albuterol inh/neb, claritin. Asthmatic bronchitis 405 398285 J45.909 Loratadine refill Environmental allergy 42 8046482 T78.49XA Eval for allergy trigger. Exudative pharyngitis 12 4242451 J02.9 Pt declined eval. [id number] Tamar Parada (Fam Med) [address] [place] [address] 07/07/2017 12:22:04 07/13/2017 10:20:47 Insect bite - wound 381298158 T14.8XXA < 1cm, no induration /swelling/ tenderness . Mild erythema around lesion. Bactrim for 5 days. Asthma 141538030 J45.90 9 Not tried Qvar. Using Ventolin once daily. Advised to try Qvar. [id number] Tamar Parada 14 IM [address] [facility] [place] [address] 10/23/2017 09:26:22 10/23/2017 16:00:09 Impotence 238960114 N52.9 PHQ 9 = 6. Basic labs first. Declined exam. If workup neg, pt would like to try Viagra - understood risks. Body mass index 25-29 - overweight 072699188 Z68.25 lifestyle [id number] Tamar Parada 14 IM [address] [facility] [place] [address] 11/04/2017 12:20:04 11/05/2017 11:06:58 Candidiasis of skin 72309774 B37.2 Right groin - inner thigh. Hyperpigme nted. Advised longer term treatment until rash is completely gone. Keep area dry. Pain in wrist 63964113 M 25.531 4 weeks - ER in XR neg per pt. Tenderness right on the ulnar head. Pt prefers to monitor. [id number] Tamar Parada 14 IM [address] [facility] [place] [address] 01/08/2018 16:13:45 01/11/2018 11:33:24 Cut of finger 986370119 S61.219A Cut 1 week ago. Healed very well. Monitor only. Environmental allergy 42 6346566 T78.49XA Eval for allergy trigger. Addendum: multiple allergen - food and environmen t. 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 Wrote a note for his job to transfer to another area / department more friendly for his allergies. [id number] Tamar Parada 14 IM [address] [facility] [place] [address] 05/12/2018 15:31:16 05/12/2018 16:19:14 Streptococcal sore throat 01575708 J02.0 Strept postive. Amoxicilli n. [id number] Tamar Parada 14 IM [address] [facility] [place] [address] 08/25/2018 10:00:23 08/26/2018 10:22:15 Moderate persistent asthma 730353674 J45.40 History: Uncontroll ed. ER 2x / year. Ventolin 1-2 x daily.We will add Qvar. Continue albuterol inh/neb, claritin. 08/2018: In exacerbati on today. This time with cutting grass. Only on albuterol inhaler/ne b. Neb treatement in clinic today. Resume all meds. Add steroid. [id number] Tamar Parada 14 IM [address] [facility] [place] [address] 06/03/2019 10:26:08 06/03/2019 15:09:56 Candidiasis of skin 64255789 B37.2 2018: Right groin - inner thigh. Hyperpigme nted. Advised longer term treatment until rash is completely gone. Keep area dry. 05/2019: Recurred. Hyperpigme nted patch b/l groin, itch. Has athlete feet. Treat feet and groin with nystatin cream. Keep areas dry and clean. Impotence 166099185 N52. 9 PHQ 9 = 6. Basic labs first. Declined exam. If workup neg, pt would like to try Viagra - understood risks. Addendum: workup neg. Start Cialis. [id number] Tamar Parada 14 IM [address] [facility] [address] [place] [address] [place] [address] 09/06/2019 08:23:15 09/14/2019 09:56:10 Acute stress disorder 00953165 F43.0 Recent inc stress. Started last week.Divor ce, Custody, COVID 19. Difficulty in public places. Fatigue.PH Q 9 = 11 / SUZANNA 7 - 7.Pt using OTC meds for insomnia. Will get counseling from work.[employer] [place] for FMLA. Asthmatic bronchitis 405 331466 J45.249 [id number] DOLORES COLON NP [facility] [address] [place] [address] 12/21/2019 14:50:23 12/22/2019 05:52:17 Moderate persistent asthma 146693101 J45.40 - Instructed patient if albuterol usage increases beyond 2-3 times per week for 2 weeks, it may been a sign of worsening control.- Call office or go to ER for worsening cough, wheeze or work of breathing. - Follow up in office in 1 months- Patient verbalized understand ing. [id number] DOLORES COLON NP [facility] [address] [place] [address] 06/14/2020 08:50:44 06/15/2020 14:58:57 Moderate persistent asthma 993642880 J45.40 - Instructed patient if albuterol usage increases beyond 2-3 times per week for 2 weeks, it may been a sign of worsening control.- Call office or go to ER for worsening cough, wheeze or work of breathing. - Follow up in office in 1 months- Patient verbalized understand ing. Strain of back muscle 26 8495263 S39.012A Asthma 200696086 J45.90 9 [id number] DOLORES COLON NP [address] [address] 08/29/2020 08:41:17 08/29/2020 18:42:52 Moderate persistent asthma 562249922 J45.40 - Instructed patient if albuterol usage increases beyond 2-3 times per week for 2 weeks, it may been a sign of worsening control.- Call office or go to ER for worsening cough, wheeze or work of breathing. - Follow up in office in 1 months- Patient verbalized understand ing. Environmental allergy 42 8599779 T78.49XS Sleep disorder 24238274 G47.9 Urinary symptoms 5370061 08 R39.9 - Patient c/o increase urge and frequency [id number] DOLORES COLON NP [place] [address] 11/15/2020 08:59:44 11/26/2020 14:42:36 Moderate persistent asthma 355577894 J45.40 - Dwp the importance of taking [...] in 3 months- Patient verbalized understand ing. [id number] DOLORES COLON NP [place] 14 IM [address] [facility] [address] [place] [address] [place] [address] 01/17/2021 09:06:01 01/18/2021 15:51:30 Paresthesia 82549372 R20.2 [id number] DOLORES COLON NP [place] [address] 06/12/2021 11:33:04 06/21/2021 11:09:54 Strain of neck muscle 526437292 S16.1XXA - Counseled on neck pain,- Use heating pad for 15 to 20 minutes every 2 hours- current NSAID and muscle relaxer should help with pain, no addition medication needed- Perform ROM stretching to area. Vitamin D deficiency 347 06027 E55.9 - states did not take medication Moderate p ersistent asthma 643128203 J45.40 - Instructed patient if albuterol usage increases beyond 2-3 times per week for 2 weeks, it may been a sign of worsening control.- Call office or go to ER for worsening cough, wheeze or work of breathing. - Follow up in office in 2 months- Patient verbalized understand ing. [id number] DOLORES COLON NP [facility] [address] [place] [address] 08/13/2021 12:13:55 08/23/2021 12:01:06 Acute sinusitis 88863081 J01.90 - Counseled on sinusitis and medication s/antibiot ic use. Ibuprofen/ Tylenol for pain. Encouraged to increase fluid intake. Humidifier as needed. Moderate p ersistent asthma 181245043 J45.40 - Instructed patient if albuterol usage increases beyond 2-3 times per week for 2 weeks, it may been a sign of worsening control.- Call office or go to ER for worsening cough, wheeze or work of breathing. - Follow up in office in 2 months- Patient verbalized understand ing. [id number] DOLORES COLON NP [facility] [address] [place] [address] 12/04/2021 09:46:11 12/05/2021 19:58:41 Moderate persistent asthma 699335600 J45.40 - Instructed patient if albuterol usage increases beyond 2-3 times per week for 2 weeks, it may been a sign of worsening control.- Call office or go to ER for worsening cough, wheeze or work of breathing. - Follow up in office in 2 months- Patient verbalized understand ing. Obesity 605856499 E66.9 advised low fat, low cholestero l, low carb diet, regular exercise and weight reduction. Spasm of back muscles 20 0979930 M62.830 - Drink plenty of fluids to prevent dehydratio n.- Stretch your muscles every day- Place heating pad on the muscles- RTC if you do not get better as expected. [id number] DOLORES COLON NP [facility] [address] [place] [address] 03/25/2022 12:02:58 03/26/2022 14:28:00 Moderate persistent asthma 879244822 J45.40 - Instructed patient if albuterol usage increases beyond 2-3 times per week for 2 weeks, it may been a sign of worsening control.- Call office or go to ER for worsening cough, wheeze or work of breathing. - Follow up in office in 2 months- Patient verbalized understand ing. Elevated blood-pressure reading without diagnosis of hypertension 890017511 R03.0 - b/p in office today 138/86- Take occasional BP s, call if consistent ly >140/90.- Discussed reasons for sooner f/u than 3 months.- Patient verbalizes understand ing. Spasm of back muscles 20 5542425 M62.830 - Drink plenty of fluids to prevent dehydratio n.- Stretch your muscles every day- Place heating pad on the muscles- RTC if you do not get better as expected. Onychomyco sis of toenails 283561562 B35.1 [id number] DOLORES COLON NP [facility] [address] [place] [address] 06/03/2022 10:40:51 06/04/2022 09:29:31 Overweight 446417192 E66.3 advised low fat, low cholestero l, low carb diet, regular exercise and weight reduction. Sleep medardo tatum disturbance 71443044 G47.9 Elevated blood-pressure reading without diagnosis of hypertension 636398795 R03.0 - b/p in office today 129/90- Take occasional BP s, call if consistent ly >140/90.- Discussed reasons for sooner f/u than 3 months.- Patient verbalizes understand ing. [id number] DOLORES COLON NP [facility] [address] [place] [address] 06/23/2022 11:55:04 06/25/2022 11:21:12 Elevated blood-pressure reading without diagnosis of hypertension 041066452 R03.0 - b/p in office today 143/89- Take occasional BP s, call if consistent ly >140/90.- Discussed reasons for sooner f/u than 3 months.- Patient verbalizes understand ing. Prediabetes 099249810 R7 3.03 Vitamin D deficiency 347 57216 E55.9 Sleep medardo tatum disturbance 76106559 G47.9 - Patient states he has not schedule with pulmonolog ist for sleep study. Patient provided referral informatio n, and encourage to call and schedule appointmen t. Obesity 810226056 E66.9 advised low fat, low cholestero l, low carb diet, regular exercise and weight reduction. [id number] DOLORES COLON NP [place] [address] [place] [address] 09/24/2022 11:32:36 09/26/2022 17:24:07 Sore throat 875952187 J02.9 - Rapid strep negative.- Use over-the-c ounter throat lozenges to soothe pain.- drink plenty of fluids, ( warm/hot teas, or soups may help decrease throat pain).- RTC with worsening symptoms Overweight 643185842 E66 .3 advised low fat, low cholestero l, low carb diet, regular exercise and weight reduction. [id number] DOLORES COLON NP [place] [address] [place] [address] 10/31/2022 09:41:21 11/05/2022 13:58:52 Moderate persistent asthma 918910139 J45.40 - Instructed patient if albuterol usage increases beyond 2-3 times per week for 2 weeks, it may been a sign of worsening control.- Call office or go to ER for worsening cough, wheeze or work of breathing. - Follow up in office in 2 months- Patient verbalized understand ing. Obesity 472931597 E66.9 advised low fat, low cholestero l, low carb diet, regular exercise and weight reduction. [id number] DOLORES COLON NP [facility] [address] [place] [address] 04/22/2023 09:33:24 04/24/2023 14:15:30 Moderate persistent asthma 421003728 J45.40 - Instructed patient if albuterol usage increases beyond 2-3 times per week for 2 weeks, it may been a sign of worsening control.- Call office or go to ER for worsening cough, wheeze or work of breathing. - Follow up in office in 2 months- Patient verbalized understand ing. Strain of tendon of foot and ankle 308947264 S96.912A - Counseled on left sprain. Jac wrap, elevate, ice for 20 minutes every 2-3 hours while awake. Sleep medardo tatum disturbance 99373136 G47.9 - Patient requesting new referral for sleep study Obesity 836670615 E66.9 advised low fat, low cholestero l, low carb diet, regular exercise and weight reduction. [id number] DOLORES COLON NP [facility] [address] [place] [address] 07/13/2023 12:15:11 07/14/2023 13:48:53 Elevated blood-pressure reading without diagnosis of hypertension 908883421 R03.0 - b/p in office today 132/93- Take occasional BP s, call if consistent ly >140/90.- Discussed reasons for sooner f/u than 6 months.- Patient verbalizes understand ing. Obesity 179077797 E66.9 advised low fat, low cholestero l, low carb diet, regular exercise and weight reduction. Moderate p ersistent asthma [id number] J45.40 - Instructed patient if albuterol usage increases beyond 2-3 times per week for 2 weeks, it may been a sign of worsening control.- Call office or go to ER for worsening cough, wheeze or work of breathing. - Follow up in office in 2 months- Patient verbalized understand ing. [id number] DOLORES COLON NP [facility] [address] [address] 5 11/11/2023 11:52:38 11/17/2023 13:52:29 Sleep pattern disturbance [id number] G47.9 - Patient requesting new referral for sleep study. Obesity [id number] E66.9 advised low fat, low cholestero l, low carb diet, regular exercise and weight reduction. Moderate p ersistent asthma [id number] J45.40 - Instructed patient if albuterol usage increases beyond 2-3 times per week for 2 weeks, it may been a sign of worsening control.- Call office or go to ER for worsening cough, wheeze or work of breathing. - Follow up in office in 2 months- Patient verbalized understand ing. Elevated blood-pressure reading without diagnosis of hypertension [id number] R03.0 - b/p in office today 140/76- Take occasional BP s, call if consistent ly >140/90.- Discussed reasons for sooner f/u than 1 months.- Patient verbalizes understand ing. [id number] DOLORES COLON NP [facility] [address] [place] [address] 12/23/2023 14:17:04 01/06/2024 11:46:34 Sleep pattern disturbance [id number] G47.9 - Patient requesting new referral for sleep study. Obesity 832931955 E66.9 advised low fat, low cholestero l, low carb diet, regular exercise and weight reduction. Elevated blood-pressure reading without diagnosis of hypertension 930674470 R03.0 - Resolved- b/p in office today 129/79- Take occasional BP s, call if consistent ly >140/90.- Discussed reasons for sooner f/u than 1 months.- Patient verbalizes understand ing. [id number] DOLORES COLON NP [facility] [address] [place] [address] 05/18/2024 13:55:22 05/20/2024 09:55:47 Respiratory tract congestion and cough [id number] R05.9 Increase fluid intake, rest, and humidifier use.Recomm ended OTC decongesta nts and cough suppressan ts as needed.If symptoms persist >10 days, worsen, or are accompanie d by high fever, will reassess for possible bacterial infection. Educated patient on red flag symptoms (difficult y breathing, persistent high fever, worsening symptoms). Moderate p ersistent asthma [id number] J45.40 - Instructed patient if albuterol usage increases beyond 2-3 times per week for 2 weeks, it may been a sign of worsening control.- Call office or go to ER for worsening cough, wheeze or work of breathing. - Follow up in office in 4 months- Patient verbalized understand ing. Positive s creening for depression on PHQ-9 (Patient Health Questionnaire 9) [id number] 79749 Z13.31 Mild Depression (PHQ-9)- Discussed symptoms of [...] Achieves adequate, well-rested sleep with minimal disruption [facility] Xochitl Miller LPN Information not available 07/28/2023 18:21:15 Recreation al Activities Participates in recreational activities [facility] Xochitl Miller LPN Information not available 07/28/2023 18:23:36 Medication Regimen Follows medication regimen as per care team recommendation (s) [facility] active 2023 Xochitl Miller LPN Information not available 07/06/2024 13:50:40 Follow-up Appointmen t(s) Attends referral and/or follow-up appointment(s) as per care team recommendation (s) [facility] active 2023 Xochitl Miller LPN Information not available 07/06/2024 13:51:29 Weight Maintenanc e Exhibits stable weight with normal [facility] Xochitl Miller LPN Information not available 07/28/2023 18:21:15 Activities of Daily Living Performs activities of daily living independently or with minimal assistance [facility] Xochitl Miller LPN Information not available 07/28/2023 18:22:36 Weight Loss Decreases body weight as per care team recommendation (s) [facility] active 2023 Xochitl Miller LPN Information not available 07/28/2023 18:23:36 Food Security Reports ability to access and obtain foods to meet nutritional needs [facility] Xochitl Miller LPN Information not available 07/28/2023 18:21:15 Chronic Condition Action Plan Follows action plan for any worsening of chronic condition(s) as per care team recommendation (s) [facility] active 2023 Xochitl Miller LPN Information not available 07/28/2023 18:22:36 Blood Pressure Maintains blood pressure goal as defined by care team [facility] active 2023 Xochitl Miller LPN Information not available 07/28/2023 18:24:35 Financial Stability Reports financial status and/or income meets needs [facility] Xochitl Miller LPN Information not available 07/28/2023 18:21:15 Smoking Cessation Quits smoking [facility] active 2023 Xochitl Miller LPN Information not available 07/28/2023 18:21:15 Exercise Regularly Follows a regular exercise regimen or instructed exercise plan as per care team recommendation (s) [facility] active 2023 Xochitl Miller LPN Information not available 07/28/2023 18:24:35 Diet Adherence Follows prescribed or recommended diet [facility] active 2023 Xochitl Miller LPN Information not available 07/28/2023 18:24:35 Follow-up Appointmen t(s) Attends referral and/or follow-up appointment(s) as per care team recommendation (s) None active 2024 Xochitl Miller LPN Information not available 07/06/2024 13:48:22 Chronic Condition Action Plan Follows action plan for any worsening of chronic condition(s) as per care team recommendation (s) None active 2024 Xochitl Miller LPN Information not available 07/06/2024 13:48:22 Medication Regimen Follows medication regimen as per care team recommendation (s) None active 2024 Xochitl Miller LPN Information not available 07/06/2024 13:48:22 Effective Coping Manages life events with effective coping methods None active 2024 Xochitl Miller LPN Information not available 07/06/2024 13:51:29 Follow-up Appointmen t(s) Attends referral and/or follow-up appointment(s) as per care team recommendation (s) None active 2024 Xochitl Miller LPN Information not available 07/06/2024 13:50:40 Family and Social Support Reports family and/or social support needs are met None active 2024 Xochitl Miller LPN Information not available 07/06/2024 13:51:29 Stress Management Reports effective management of stress None active 2024 Xochitl Miller LPN Information not available 07/06/2024 13:49:57 Health Concerns Section Related Observation LastModified by Organization Detai ls LastModified Time None Recorded Concern Status LastModified by Organization Details LastModified Time Asthma Active Xochitl Miller LPN Not Available 18:22:36 Elevated blood-pressure reading without diagnosis of hypertension Active Xochitl Miller LPN Not Available 07/28/2023 1 8:24:35 Obesity Active Xochitl Miller LPN Not Available 18:23:36 Respiratory tract congestion and cough Active Xochitl Miller LPN Not Available 025 13:50:40 Positive screening for depression on PHQ-9 (Patient Health Questionnaire 9) Active Xochitl Miller LPN Not Available 07/06/2024 13:51:29 Advance Directives Directive N: Payers Encounter Date Sequence Insurance Name Policy Number Policy Rodriguez Covered Member ID Rodriguez Member ID Guarantor Name 04/22/2023 1 [facility] [id number] [facility] St[facility]-Bar trino [id number] [facility] Radha Stiven Barbosa 07/13/2023 1 [facility] [id number] [facility] Aidanne Stiven-Bar trino [id number] [facility] Radha Stiven Barbosa 11/11/2023 1 [facility] [id number] [facility] Radha Stiven-Bar trino [id number] [facility] Radha Stiven Barbosa 12/23/2023 1 [facility] [id number] [facility] Radha Stiven-Bar trino [id number] [facility] Radha Stiven Barbosa 05/18/2024 1 [facility] [id number] [facility] Radha Stiven-Bar trino [id number] [facility] JesseJustin [facility] Notes Date Note Type Note Provider Name [...] week. DOLORES COLON NP Attn: Accounting,[address] [place], [address], [facility] 04/23/2023 14:15:15 07/13/2023 text/html Mr. Barbosa presrachelle nted in office today for follow up appointment. Patient requests that an Ameren form be filled out in order to keep his electricity on. DOLORES COLON NP Attn: Accounting,[address] [place], [address], [place] [facility] 07/13/2023 12:58:42 07/13/2023 text/html Asthma F/UReport ed bypatient.Severity:able to sleep during episode; does not interfere with daily activities Onset/Timing:chronic Context:same DOLORES COLON NP Attn: Accounting,[address] [place], [address], [place] [facility] 07/13/2023 12:58:42 11/11/2023 text/html Asthma F/UReport ed bypatient.Severity:uses nebulizer/inhaler an average of <2 times/week lately Onset/Timing:chronic Context:sameSleep ProblemsReported bypatient.General Sleep:snoring;witnessed apnea;unrefreshing sleep Onset/Timing:progressiv kirsten worse over last 6months Severity:moderate;inter ference with work Location of sleep apnea:no dryness of mouth; no chest congestion Pain disturbing sleep:headache Mr. Barbosa presented in office today for follow up appointment. DOLORES COLON NP Attn: Accounting,[address] [place], [address], [place] [facility] 11/16/2023 09:22:16 12/23/2023 text/html Mr. Chelsey borges nted in office today for follow up appointment DOLORES COLON NP Attn: Accounting,[address] [facility], [place], [address], [facility] 01/04/2024 22:58:03 05/18/2024 text/html Upper Respirator y SymptomsReported bypatient.Location[facility] Quality:colored phlegm;congested Severity:moderate Context:no foreign travel;asthma Associated Symptoms:no shortness of breath; no fever;yellow-green, thick sputum;wheezing Mr. Barbosa presents for a follow-up appointment, reporting a cough and congestion for the past four days. DOLORES COLON NP Attn: Accounting,[address] [facility], [place], [address], [facility] 05/18/2024 14:55:59
--- OUTSIDE RECORDS SUMMARY | 2024-07-10 17:08 | XMS_ITS | Clinical Summary ---
Author Organization [facility] Address [address] [place] [address] Care Team Providers Care Feed Mill Lab Technician Name Role Phone JayDolores NP Primary Care Provider [phone] Allergies Active Allergy Reactions Criticality Noted Date [...] Encounters Date Type Department Care Team Description 06/23/[address] [facility] Medical [facility] Pulmonary [address] [place] [address] Juliet Fontenot MD Request For Order(s) 06/14/[address] 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
--- OUTSIDE RECORDS SUMMARY | 2024-07-10 17:08 | XMS_ITS | Referral Summary ---
Author Organization [facility] Address [address] [place] [address] Care Team Providers Care Information Technology Account Manager Name Role Phone JayDolores NP Primary Care Provider [phone] Encounters Date Type Department Care Team Description 06/23/2024 Telephone [facility] Medical Group Pulmonary [address] [place] [address] Juliet Fontenot MD Request For Order(s) 06/14/2024 Documentation [facility] Home Care Services [address] [place] [address] [address] [place] [address] Louis Syed, BAGGER MEAT from Last 3 Months Allergies Active Allergy [...] on file 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
--- OUTSIDE RECORDS SUMMARY | 2024-07-10 17:08 | XMS_ITS | Clinical Summary ---
Author Organization [facility] Address [address] [place] [address] Phone Care Team Providers Care Wastewater Manager Name Role Phone Jay, Dolores Rush APRN, [...] Comments Blood Pressure 139/87 06/11/2023 1:29 PM [facility] Pulse 79 06/11/2023 1:29 PM [facility] Temperature 35.9 C (96.7 F) 06/11/2023 11:51 AM [facility] Respiratory Rate 17 06/11/2023 1:29 PM [facility] Oxygen Saturation 96% 06/11/2023 1:29 PM [facility] Inhaled Oxygen Concentration - - Weight 81.6 kg (180 lb) 06/11/2023 11:51 AM [facility] Height 167.6 cm (5' 6 ) 06/11/2023 11:51 AM [facility] Body Mass Index 29.05 06/11/2023 11:51 AM [facility] Plan of Treatment Health Maintenance Due Date [...] patient's age to complete this topic Insurance [facility] Member Subscriber Plan / Payer (Ef fective 2022-Present) Name:Perla Martins Relation to Subscriber:Self Name:Perla Martins Payer ID:[id number] (NAIC) Type:Not on file Address: [facility] [id number] [id number] Care Teams Wastewater Manager Relationship Specialty Start Date End Date Dolores Thompson APRN, PASSPORT SUPPORT ASSOCIATE [address] [place] [address] PCP - General Advanced Practice Nurse 07/11/21
[2024-07-10 17:14] VITALS: BP 130/70; PULSE 85; RESP 20; TEMP 36.5; O2SAT 100
--- NOTE | 2024-07-10 18:18 | PC.NURSE ---
Pt leaving without being seen by provider. PT states I just need to leave.
== END 2024-07-10 18:18 | disposition left against medical advice (07) ==
PROVIDERS: Emergency Provider Registered Nurse; PCP Nurse Practitioner Family
DX: Z53.21 Procedure and treatment not carried out due to patient leaving prior to being seen by health care provider (principal)
CPT/HCPCS: 99199